=== PATIENT | male | born 1985 | race Caucasian/White ===

== ENCOUNTER 2019-07-03 21:45 | Emergency (ER) | payer MEDICAID, SELFPAY ==
[2019-07-03 21:53] VITALS: BP 150/85; PULSE 108; RESP 15; TEMP 36.9; O2SAT 98; BMI 25.6
--- NOTE | 2019-07-03 22:13 | ED_ITS ---
HPI - Dental/Oral General Chief complaint: Dental/Oral Stated complaint: HAD DENTAL DONE RIGHT SIDE OF FACE SWELLING Time Seen by Provider: 07/03/19 22:05 Source: patient Mode of arrival: Ambulatory Limitations: no limitations History of Present Illness HPI Narrative: 33-year-old male here for evaluation of right-sided facial swelling. Patient states that he has had a dental infection in the past on his right side. This was several weeks/months ago. Was started on antibiotics and was told to follow up with dental. After he completed the antibiotics the symptoms had improved however he has not followed up with dentist. He does have a follow-up tomorrow morning with a dentist. Returns today for swelling right side of his face. No problems breathing. Related Data Home Medications Medication Instructions Recorded Confirmed alprazolam PO Q12HP PRN #0 10/17/16 Previous Rx's Medication Instructions Recorded clindamycin HCl 300 mg PO QID 7 Days #28 cap 07/03/19 Allergies Allergy/AdvReac Type Severity Reaction Status Date / Time amoxicillin [AMOXICILLIN] Allergy Unknown Verified 07/03/19 21:53 Penicillins [PENICILLINS] Allergy Unknown Verified 07/03/19 21:53 Review of Systems Constitutional Constitutional: Denies fever(s) ENT Comments: Swelling to right side of face Cardiovascular Cardiovascular: Denies chest pain and Denies dyspnea Respiratory Respiratory: Denies dyspnea Gastrointestinal Gastrointestinal: Denies abdominal pain, Denies nausea and Reports vomiting Integumentary/Breasts Skin/Breast: Denies rash Neurologic Neurologic: Denies behavioral changes Psychiatric Psychiatric: Denies behavioral changes Hematologic/Lymphatic Hematologic/Lymphatic: Denies easy bleeding and Denies easy bruising [facility] Medical History Syncopal episodes (Inactive) Social History Smoking Status: Current every day smoker Social History Smoking Status: Current every day smoker Exam Initial Vital Signs Initial Vital Signs: Vital Signs Temperature 98.5 F 07/03/19 21:53 Pulse Rate 108 H 07/03/19 21:53 Respiratory Rate 15 07/03/19 21:53 Blood Pressure 150/85 H 07/03/19 21:53 Pulse Oximetry 98 07/03/19 21:53 Const General: cooperative, comfortable and well developed Orientation: alert, awake and oriented x3 HENMT Head: normal to inspection Ears: TM's normal bilaterally Mouth: oral mucosae normal Teeth and gingiva: caries and poor dentition Throat: posterior oropharynx normal Resp Effort & Inspection: normal respiratory effort Cardio Rate: tachycardic Pulses: radial pulses present GI Inspection: non-distended Palpation: soft Skin Lesions: no lesions Rashes: no rashes Neuro General: alert, awake and oriented x3 Cognition: normal cognition Speech: speech normal Psych Appearance: grossly normal and well kempt Course Orders Ordered: Discontinued Medications Clindamycin HCl (Cleocin) 300 mg PO NOW ONE Stop: 07/03/19 22:14 Last Admin: 07/03/19 22:24 Dose: 300 mg Documented by: XOCHITL Vital Signs Vital signs: Vital Signs - 8 hr 07/03/19 21:53 07/03/19 22:34 Temperature 98.5 F Pulse Rate 108 H 75 Respiratory Rate 15 Blood Pressure 150/85 H 141/72 H Pulse Oximetry 98 MDM - Dental/Oral MDM Narrative Medical decision making narrative: Patient does have a cracked right lower tooth. Does have swelling along the mandibular region of his right side of his face. There is no drainable abscess seen here in the emergency department. He has no problems breathing. He was given a dose of clindamycin here in the emergency department. Will send home with a prescription for this. His wound continued to keep his appointment with his dentist tomorrow. He was given return precautions and follow-up instructions. He expressed understanding and agreement with plan. Discharge Plan Departure Patient Disposition: Home Clinical Impression: Dental abscess Discharge Date/Time: 07/03/19 22:36 Instructions: Tooth Abscess Activity Restrictions/Additional Instructions: You can continue to take Tylenol and/or ibuprofen for any discomfort. Take the antibiotics as directed. Tomorrow you do need to contact the dentist like we discussed. Return to the emergency department for any new or worsening symptoms Prescriptions: New clindamycin HCl 300 mg capsule 300 mg PO QID 7 Days Qty: 28 RF: 0 No Action alprazolam 0.25 mg tablet PO Q12HP PRNQty: 0 RF: 0
[2019-07-03] MEDS: CLINDAMYCIN 150 MG CAPSULE 300 MG PO (22:24)
[2019-07-03 22:34] VITALS: BP 141/72; PULSE 75
== END 2019-07-03 22:36 | disposition home or self-care (01) ==
PROVIDERS: Emergency Provider Emergency Medicine
DX: K04.7 Periapical abscess without sinus (principal)
CPT/HCPCS: 99282; 99283

== ENCOUNTER 2019-12-17 13:18 | Emergency (ER) | payer OTHER, MEDICAID, SELFPAY ==
[2019-12-17 13:28] VITALS: BP 130/99; PULSE 93; RESP 16; TEMP 36.6; O2SAT 97; BMI 22.1
--- NOTE | 2019-12-17 13:37 | ED.MEDCLEAR ---
HPI - Medical Clearance <MARYA Campbell - Last Filed: 12/17/19 17:11> General Chief complaint: Medical Clearance Stated complaint: Screening before going into detox Time Seen by Provider: 12/17/19 13:25 Source: patient Mode of arrival: Ambulatory Limitations: no limitations History of Present Illness HPI Narrative: The patient is a 34-year-old current smoker with history of meth and heroin use who presents with a chief complaint of requesting medical clearance before going to detox. He states that he has been to [facility] detox before. He states that they have called him and they have a bed for him. However he needs to have lab work done first. He states he does not use IV drugs as he is afraid of needles. States he smoked heroin 58 minutes prior to arrival to the emergency department. He denies any thoughts of hurting himself or anybody else. He denies any physical complaints at this point time. Related Information Home Medications Medication Instructions Recorded Confirmed alprazolam PO Q12HP PRN #0 10/17/16 Allergies Allergy/AdvReac Type Severity Reaction Status Date / Time amoxicillin [AMOXICILLIN] Allergy Unknown Verified 07/03/19 21:53 Penicillins [PENICILLINS] Allergy Unknown Verified 07/03/19 21:53 Review of Systems <BLANCA Campbell - Last Filed: 12/17/19 17:11> Review of Systems Narrative: GENERAL: Denies chills, fatigue, malaise, fever, sweats. HEENT: Denies sinus pain, ear pain, sore throat, difficulty swallowing, dizziness. RESPIRATORY: Denies dyspnea, cough, wheezing, hemoptysis, sputum. CARDIOVASCULAR: Denies chest pain, palpitations, orthopnea, edema, GASTROINTESTINAL: Denies nausea, vomiting, abdominal pain, diarrhea, constipation, melena. : Denies dysuria, frequency, incontinence, hematuria, urinary retention. MUSCULOSKELETAL: denies weakness, joint pain, or bony pain SKIN: Denies rash, skin lesions, or other NEUROLOGIC: Denies weakness, headache, numbness, change in speech, confusion, seizures, incoordination. PSYCHIATRIC: See HPI 12 point review of systems is negative except for those stated above Patient History <MARYA Campbell - Last Filed: 12/17/19 17:11> Social History Smoking Status: Current every day smoker Smoking Status: Current every day smoker tobacco type: vaping alcohol intake frequency: other Substance Use Type: does not use Exam <MARYA Campbell - Last Filed: 12/17/19 17:11> Narrative Exam Narrative: GENERAL: This is a well-nourished, well-developed patient, no acute distress HEAD: Atraumatic. Normocephalic. No temporal or scalp tenderness. EYES: Pupils equal round and reactive. Extraocular motions intact. No scleral icterus. No injection or drainage. ENT: Nose without bleeding, purulent drainage or septal hematoma. Throat without erythema, tonsillar hypertrophy or exudate. Uvula midline. Airway patent. NECK: Trachea midline. No JVD or lymphadenopathy. Supple, nontender, no meningeal signs. CARDIOVASCULAR: Regular rate and rhythm RESPIRATORY: Clear to auscultation. Breath sounds equal bilaterally. No wheezes, rales, or rhonchi. No cough. No increased respiratory effort. No accessory muscle use GASTROINTESTINAL: Abdomen soft, non-tender, nondistended. No hepato-splenomegaly, or palpable masses. No guarding. EXTREMITIES: No clubbing, cyanosis, or edema. No joint tenderness, effusion, or edema noted. BACK: Nontender without deformity or crepitance. No flank tenderness. NEURO: AOx3. SKIN: No rash or erythema on visible skin Initial Vital Signs Initial Vital Signs: Vital Signs Temperature 97.9 F 12/17/19 13:28 Pulse Rate 93 H 12/17/19 13:28 Respiratory Rate 16 12/17/19 13:28 Blood Pressure 130/99 H 12/17/19 13:28 Pulse Oximetry 97 12/17/19 13:28 <Mika Evans DO - Last Filed: 12/17/19 17:37> Initial Vital Signs Initial Vital Signs: Vital Signs Temperature 97.9 F 12/17/19 13:28 Pulse Rate 93 H 12/17/19 13:28 Respiratory Rate 16 12/17/19 13:28 Blood Pressure 130/99 H 12/17/19 13:28 Pulse Oximetry 97 12/17/19 13:28 Scores <MARYA Campbell - Last Filed: 12/17/19 17:11> [facility] [place] coma scale eye opening: Spontaneous [place] coma scale verbal response: Orientated Daniel coma scale motor response: Obey commands [place] coma scale total score: 15 MDM - Medical Clearance <Lucia BLANCA Leslie - Last Filed: 12/17/19 17:11> Lab Data Result diagrams: 12/17/19 13:42 12/17/19 13:42 Labs: Lab Results 12/17/19 12/17/19 12/17/19 Range/Units 13:42 13:42 13:42 WBC 4.7 (4.5-11.0) X10^3/uL RBC 4.32 L (4.5-5.9) X10^6/uL Hgb 12.6 L (13.5-17.5) g/dL Hct 36.6 L (41-53) % MCV 84.7 (80-100) fL MCH 29.2 (26-34) PG MCHC 34.5 (30-36) % RDW 13.2 (11.6-14.8) % Plt Count 193 (150-400) X10^3/uL Neut % (Auto) 48.0 L (50-75) % Lymph % (Auto) 35.7 (25-40) % [place] % (Auto) 7.2 (3-14) % Eos % (Auto) 8.0 H (2-4) % Baso % (Auto) 1.1 (0-2) % Neut # (Auto) 2300 (0113-5785) /uL Lymph # (Auto) 1700 (4437-7795) /uL [place] # (Auto) 300 (0-900) /uL Eos # (Auto) 400 (0-450) /uL Baso # (Auto) 0 (0-100) /uL Sodium 137 (137-145) mmol/L Potassium 4.3 (3.4-5.1) mmol/L Chloride 101 (98-107) mmol/L Carbon Dioxide 28 (22-32) mmol/L BUN 18 (9-20) mg/dL Creatinine 0.73 (0.66-1.25) mg/dL Estimated GFR > 60.0 (>60) mL/min BUN/Creatinine Ratio 24.7 H (6-22) Glucose 99 (70-100) mg/dL Calcium 9.6 (8.4-10.2) mg/dL Total Bilirubin 1.1 (0.2-1.3) mg/dL AST 40 (17-59) IU/L ALT 18 (<50) IU/L Alkaline Phosphatase 55 (38-126) U/L Total Protein 7.3 (6.3-8.2) g/dL Albumin 4.4 (3.5-5.0) g/dL Globulin 2.9 (1.7-4.1) g/dL Albumin/Globulin Ratio 1.5 (1.0-2.8) TSH (0.47-4.68) uIU/mL Urine Color Urine Appearance Urine pH (4.5-8.0) Ur Specific [place] (1.000-1.035) Urine Protein (Negative) Urine Glucose (UA) (Negative) g/dL Urine Ketones (NEGATIVE) Urine Occult Blood (Negative) Urine Nitrate (Negative) Urine Bilirubin (NEGATIVE) Urine Urobilinogen (0.2) E.U./dL Ur Leukocyte Esterase (NEGATIVE) Urine RBC (0-5/HPF) Urine WBC (0-5/HPF) Amorphous Sediment Urine Bacteria (None) Ur Culture Indicated? Salicylates < 1.0 (<20) mg/dL U Opiates 300ng/mL cut (Negative) Ur Oxycodone Screen (Negative) Urine Methadone Screen (Negative) Acetaminophen < 10 L (10-30) ug/mL Ur Barbiturates Screen (Negative) U Tricyclic Antidepress (Negative) Ur Phencyclidine Scrn (Negative) Ur Amphetamines Screen (Negative) U Methamphetamines Scrn (Negative) Ur MDMA Scrn (Ecstasy) (Negative) U Benzodiazepines Scrn (Negative) Urine Cocaine Screen (Negative) U Marijuana (THC) Screen (Negative) Ethyl Alcohol < 10 ( - 10) mg/dL 12/17/19 12/17/19 12/17/19 Range/Units 13:42 14:11 14:11 WBC (4.5-11.0) X10^3/uL RBC (4.5-5.9) X10^6/uL Hgb (13.5-17.5) g/dL Hct (41-53) % MCV (80-100) fL MCH (26-34) PG MCHC (30-36) % RDW (11.6-14.8) % Plt Count (150-400) X10^3/uL Neut % (Auto) (50-75) % Lymph % (Auto) (25-40) % [place] % (Auto) (3-14) % Eos % (Auto) (2-4) % Baso % (Auto) (0-2) % Neut # (Auto) (7787-1481) /uL Lymph # (Auto) (3686-0962) /uL [place] # (Auto) (0-900) /uL Eos # (Auto) (0-450) /uL Baso # (Auto) (0-100) /uL Sodium (137-145) mmol/L Potassium (3.4-5.1) mmol/L Chloride (98-107) mmol/L Carbon Dioxide (22-32) mmol/L BUN (9-20) mg/dL Creatinine (0.66-1.25) mg/dL Estimated GFR (>60) mL/min BUN/Creatinine Ratio (6-22) Glucose (70-100) mg/dL Calcium (8.4-10.2) mg/dL Total Bilirubin (0.2-1.3) mg/dL AST (17-59) IU/L ALT (<50) IU/L Alkaline Phosphatase (38-126) U/L Total Protein (6.3-8.2) g/dL Albumin (3.5-5.0) g/dL Globulin (1.7-4.1) g/dL Albumin/Globulin Ratio (1.0-2.8) TSH 4.15 (0.47-4.68) uIU/mL Urine Color Yellow Urine Appearance Clear Urine pH 8.0 (4.5-8.0) Ur Specific [place] 1.020 (1.000-1.035) Urine Protein Negative (Negative) Urine Glucose (UA) Negative (Negative) g/dL Urine Ketones Negative (NEGATIVE) Urine Occult Blood Negative (Negative) Urine Nitrate Negative (Negative) Urine Bilirubin Negative (NEGATIVE) Urine Urobilinogen 0.2 (0.2) E.U./dL Ur Leukocyte Esterase Negative (NEGATIVE) Urine RBC None seen (0-5/HPF) Urine WBC None seen (0-5/HPF) Amorphous Sediment 1+ Urine Bacteria None seen (None) Ur Culture Indicated? Cult not indicated Salicylates (<20) mg/dL U Opiates 300ng/mL cut Positive H (Negative) Ur Oxycodone Screen Negative (Negative) Urine Methadone Screen Negative (Negative) Acetaminophen (10-30) ug/mL Ur Barbiturates Screen Negative (Negative) U Tricyclic Antidepress Negative (Negative) Ur Phencyclidine Scrn Negative (Negative) Ur Amphetamines Screen Negative (Negative) U Methamphetamines Scrn Positive H (Negative) Ur MDMA Scrn (Ecstasy) Negative (Negative) U Benzodiazepines Scrn Negative (Negative) Urine Cocaine Screen Negative (Negative) U Marijuana (THC) Screen Positive H (Negative) Ethyl Alcohol ( - 10) mg/dL ECG Data Attestation: I personally reviewed and interpreted this ECG as follows: Interpretation: Sinus rhythm. Ventricular rate 72. P.r. interval 120. QRS duration 102. viewed by Dr Cristina SCHWARZ Narrative Medical decision making narrative: The patient is a 34-year-old male who presents with a chief complaint of medical clearance for detox. I spoke with [facility], who states that the patient has a bed. Lab results were faxed over and they accepted him as a patient. Patient states he will walk home in order for his to drive him. I discussed at length that since he is intoxicated, he is unable to drive. He is okay with this. Patient radiates that he has no thoughts of hurting himself or anybody else. Patient has no questions or concerns upon discharge and states understanding return precautions as well as follow-up care. <Mika Evans, DO - Last Filed: 12/17/19 17:37> Lab Data Labs: Lab Results 12/17/19 12/17/19 12/17/19 Range/Units 13:42 13:42 13:42 WBC 4.7 (4.5-11.0) X10^3/uL RBC 4.32 L (4.5-5.9) X10^6/uL Hgb 12.6 L (13.5-17.5) g/dL Hct 36.6 L (41-53) % MCV 84.7 (80-100) fL MCH 29.2 (26-34) PG MCHC 34.5 (30-36) % RDW 13.2 (11.6-14.8) % Plt Count 193 (150-400) X10^3/uL Neut % (Auto) 48.0 L (50-75) % Lymph % (Auto) 35.7 (25-40) % [place] % (Auto) 7.2 (3-14) % Eos % (Auto) 8.0 H (2-4) % Baso % (Auto) 1.1 (0-2) % Neut # (Auto) 2300 (3191-3889) /uL Lymph # (Auto) 1700 (2682-2136) /uL [place] # (Auto) 300 (0-900) /uL Eos # (Auto) 400 (0-450) /uL Baso # (Auto) 0 (0-100) /uL Sodium 137 (137-145) mmol/L Potassium 4.3 (3.4-5.1) mmol/L Chloride 101 (98-107) mmol/L Carbon Dioxide 28 (22-32) mmol/L BUN 18 (9-20) mg/dL Creatinine 0.73 (0.66-1.25) mg/dL Estimated GFR > 60.0 (>60) mL/min BUN/Creatinine Ratio 24.7 H (6-22) Glucose 99 (70-100) mg/dL Calcium 9.6 (8.4-10.2) mg/dL Total Bilirubin 1.1 (0.2-1.3) mg/dL AST 40 (17-59) IU/L ALT 18 (<50) IU/L Alkaline Phosphatase 55 (38-126) U/L Total Protein 7.3 (6.3-8.2) g/dL Albumin 4.4 (3.5-5.0) g/dL Globulin 2.9 (1.7-4.1) g/dL Albumin/Globulin Ratio 1.5 (1.0-2.8) TSH (0.47-4.68) uIU/mL Urine Color Urine Appearance Urine pH (4.5-8.0) Ur Specific [place] (1.000-1.035) Urine Protein (Negative) Urine Glucose (UA) (Negative) g/dL Urine Ketones (NEGATIVE) Urine Occult Blood (Negative) Urine Nitrate (Negative) Urine Bilirubin (NEGATIVE) Urine Urobilinogen (0.2) E.U./dL Ur Leukocyte Esterase (NEGATIVE) Urine RBC (0-5/HPF) Urine WBC (0-5/HPF) Amorphous Sediment Urine Bacteria (None) Ur Culture Indicated? Salicylates < 1.0 (<20) mg/dL U Opiates 300ng/mL cut (Negative) Ur Oxycodone Screen (Negative) Urine Methadone Screen (Negative) Acetaminophen < 10 L (10-30) ug/mL Ur Barbiturates Screen (Negative) U Tricyclic Antidepress (Negative) Ur Phencyclidine Scrn (Negative) Ur Amphetamines Screen (Negative) U Methamphetamines Scrn (Negative) Ur MDMA Scrn (Ecstasy) (Negative) U Benzodiazepines Scrn (Negative) Urine Cocaine Screen (Negative) U Marijuana (THC) Screen (Negative) Ethyl Alcohol < 10 ( - 10) mg/dL 12/17/19 12/17/19 12/17/19 Range/Units 13:42 14:11 14:11 WBC (4.5-11.0) X10^3/uL RBC (4.5-5.9) X10^6/uL Hgb (13.5-17.5) g/dL Hct (41-53) % MCV (80-100) fL MCH (26-34) PG MCHC (30-36) % RDW (11.6-14.8) % Plt Count (150-400) X10^3/uL Neut % (Auto) (50-75) % Lymph % (Auto) (25-40) % [place] % (Auto) (3-14) % Eos % (Auto) (2-4) % Baso % (Auto) (0-2) % Neut # (Auto) (4358-7808) /uL Lymph # (Auto) (0362-9832) /uL [place] # (Auto) (0-900) /uL Eos # (Auto) (0-450) /uL Baso # (Auto) (0-100) /uL Sodium (137-145) mmol/L Potassium (3.4-5.1) mmol/L Chloride (98-107) mmol/L Carbon Dioxide (22-32) mmol/L BUN (9-20) mg/dL Creatinine (0.66-1.25) mg/dL Estimated GFR (>60) mL/min BUN/Creatinine Ratio (6-22) Glucose (70-100) mg/dL Calcium (8.4-10.2) mg/dL Total Bilirubin (0.2-1.3) mg/dL AST (17-59) IU/L ALT (<50) IU/L Alkaline Phosphatase (38-126) U/L Total Protein (6.3-8.2) g/dL Albumin (3.5-5.0) g/dL Globulin (1.7-4.1) g/dL Albumin/Globulin Ratio (1.0-2.8) TSH 4.15 (0.47-4.68) uIU/mL Urine Color Yellow Urine Appearance Clear Urine pH 8.0 (4.5-8.0) Ur Specific [place] 1.020 (1.000-1.035) Urine Protein Negative (Negative) Urine Glucose (UA) Negative (Negative) g/dL Urine Ketones Negative (NEGATIVE) Urine Occult Blood Negative (Negative) Urine Nitrate Negative (Negative) Urine Bilirubin Negative (NEGATIVE) Urine Urobilinogen 0.2 (0.2) E.U./dL Ur Leukocyte Esterase Negative (NEGATIVE) Urine RBC None seen (0-5/HPF) Urine WBC None seen (0-5/HPF) Amorphous Sediment 1+ Urine Bacteria None seen (None) Ur Culture Indicated? Cult not indicated Salicylates (<20) mg/dL U Opiates 300ng/mL cut Positive H (Negative) Ur Oxycodone Screen Negative (Negative) Urine Methadone Screen Negative (Negative) Acetaminophen (10-30) ug/mL Ur Barbiturates Screen Negative (Negative) U Tricyclic Antidepress Negative (Negative) Ur Phencyclidine Scrn Negative (Negative) Ur Amphetamines Screen Negative (Negative) U Methamphetamines Scrn Positive H (Negative) Ur MDMA Scrn (Ecstasy) Negative (Negative) U Benzodiazepines Scrn Negative (Negative) Urine Cocaine Screen Negative (Negative) U Marijuana (THC) Screen Positive H (Negative) Ethyl Alcohol ( - 10) mg/dL Discharge Plan Departure Patient Disposition: Home Clinical Impression: Drug abuse Discharge Date/Time: 12/17/19 16:10 Instructions: DI for Drug Abuse and Drug Addiction, DI for Drug or Alcohol Withdrawal Activity Restrictions/Additional Instructions: Thank you for trusting us with your care today. I am proud of you for getting help. You have succeeded in getting clean before and you can do it again. Please proceed directly to [facility]. 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 Please do not drive. Prescriptions: No Action alprazolam 0.25 mg tablet PO Q12HP PRNQty: 0 RF: 0 ED Sign-out <MARYA Campbell - Last Filed: 12/17/19 17:11> [facility] ED Attending Tami Attestation: I was immediately available in the department for consultation. This documentation has been reviewed and I agree with assessment and plan. Supervised by MARYA Campbell <Mika Evans DO - Last Filed: 12/17/19 17:37> [facility] ED Attending Tami Attestation: Dr Evans Co-Sign Statement: I was available for consultation during this patient's emergency department visit. This chart is signed by myself for administrative purposes only. I did not have direct contact with this patient during this visit. They were seen independently by the APC.
[2019-12-17 13:50] LABS: Add Manual Diff / Slide Review NO; Basophils Absolute Auto 0 /uL (0-100); Basophils Percent Auto 1.1 % (0-2); Eosinophils Absolute Auto 400 /uL (0-450); Hematocrit 36.6 % (41-53); Hemoglobin 12.6 g/dL (13.5-17.5); Lymphocytes Absolute Auto 1700 /uL (1100-4500); Lymphocytes Percent Auto 35.7 % (25-40); Mean Corpuscular HGB Conc 34.5 % (30-36); Mean Corpuscular Hemoglobin 29.2 PG (26-34); Mean Corpuscular Volume 84.7 fL (80-100); Monocytes Absolute Auto 300 /uL (0-900); Monocytes Percent Auto 7.2 % (3-14); Neutrophils Absolute Auto 2300 /uL (1500-7000); Platelet Count 193 X10^3/uL (150-400); Red Blood Cell Count 4.32 X10^6/uL (4.5-5.9); Red Cell Distribution Width 13.2 % (11.6-14.8); White Blood Cell Count 4.7 X10^3/uL (4.5-11.0)
[2019-12-17 14:06] LABS: Alanine Aminotransferase 18 IU/L (<50); Albumin 4.4 g/dL (3.5-5.0); Albumin Globulin Ratio 1.5 (1.0-2.8); Alkaline Phosphatase 55 U/L (38-126); Aspartate Aminotransferase 40 IU/L (17-59); BUN Creatinine Ratio 24.7 (6-22); Bilirubin Total 1.1 mg/dL (0.2-1.3); Blood Urea Nitrogen 18 mg/dL (9-20); Calcium 9.6 mg/dL (8.4-10.2); Carbon Dioxide 28 mmol/L (22-32); Chloride 101 mmol/L (98-107); Estimated Glomerular Filt Rate > 60.0 mL/min (>60); Ethanol (ETOH) < 10 mg/dL; Globulin 2.9 g/dL (1.7-4.1); Glucose 99 mg/dL (70-100); HEMOLYSIS < 15 (0-50); Potassium 4.3 mmol/L (3.4-5.1); Sodium 137 mmol/L (137-145); Total Protein 7.3 g/dL (6.3-8.2)
[2019-12-17 14:07] LABS: Acetaminophen < 10 ug/mL (10-30); Salicylate < 1.0 mg/dL (<20)
[2019-12-17 15:02] LABS: Bacteria Urine None Seen; RBC Urine None Seen (0-5/HPF); WBC Urine None Seen (0-5/HPF)
[2019-12-17 15:03] LABS: Appearance Urine UA CLEAR; Bilirubin Urine UA NEGATIVE (NEGATIVE); Color Urine UA YELLOW; Glucose Urine UA NEGATIVE (Negative); Ketones Urine UA NEGATIVE (NEGATIVE); Leukocyte Esterase Urine UA NEGATIVE (NEGATIVE); Nitrite Urine UA NEGATIVE (Negative); Occult Blood Urine UA NEGATIVE (Negative); Protein Urine UA NEGATIVE (Negative); Urobilinogen Urine UA 0.2 E.U./dL (0.2)
[2019-12-17 15:05] LABS: Thyroid Stimulating Hormone 4.15 uIU/mL (0.47-4.68)
[2019-12-17 15:15] LABS: Amorphous Sediment Urine 1+; Culture Indicated Urine Cult Not Indicated
[2019-12-17 15:18] LABS: Ur Creatinine Normal (Normal); Ur Specific Gravity Normal (Normal)
[2019-12-17 15:19] LABS: UR Morphine/Opiate cutoff 300 Positive (Negative); Urine Amphetamines Negative (Negative); Urine Barbiturates Negative (Negative); Urine Benzodiazepines Negative (Negative); Urine Cocaine Negative (Negative); Urine MDMA Negative (Negative); Urine Methadone Negative (Negative); Urine Methamphetamines Positive (Negative); Urine Oxycodone Negative (Negative); Urine Phencyclidine Negative (Negative); Urine Tetrahydrocannabinol Positive (Negative); Urine Tricyclic Antidepressant Negative (Negative); Urine pH Normal (Normal)
--- NOTE | 2019-12-17 15:50 | PC.NURSE ---
pt states his is going to give him a ride to detox. pt voluntary. Per provider, okay with patient to leave to home and have take him.
[2019-12-17 15:55] VITALS: BP 140/81; PULSE 77; RESP 18; O2SAT 100
== END 2019-12-17 16:10 | disposition home or self-care (01) ==
PROVIDERS: Emergency Provider Nurse Practitioner Family
DX: F11.10 Opioid abuse, uncomplicated (principal)
CPT/HCPCS: 36415; 80053; 80305; 80320; 80329; 81001; 84443; 85025; 93005; 99282; 99283; G0480

== ENCOUNTER 2020-09-23 07:44 | Emergency (ER) | payer OTHER, MEDICAID, SELFPAY ==
[2020-09-23 07:49] VITALS: BP 167/85; PULSE 76; RESP 18; TEMP 36.9; O2SAT 100; BMI 26.9
--- NOTE | 2020-09-23 07:53 | ED.DENTAL ---
HPI - Dental/Oral General Chief complaint: Dental/Oral Stated complaint: abcess tooth Time Seen by Provider: 09/23/20 07:45 Source: patient Mode of arrival: Ambulatory Limitations: no limitations History of Present Illness HPI Narrative: 34-year-old male smoker with chief complaint of dental pain and mild facial swelling. He denies any trauma nor systemic symptoms such as fever, chills nor nausea or vomiting. He denies a drainage of any foul tasting fluid. He has been having increasing difficulty with the right upper molar for the past month or so but has really flared up over the past few days. He denies any recent antibiotics. He denies runny nose, sore throat or cough. He has had no chest pain or shortness of breath. MD Complaint: tooth pain Location: Tooth # Teeth map: 1. Onset (ago): day(s) Duration: constant Severity: severe Relieving factors: nothing Exacerbating factors: chewing, cold, heat and drinking fluids Context: history of dental caries Treatment prior to arrival: oral analgesic Related Data Home Medications Medication Instructions Recorded Confirmed alprazolam PO Q12HP PRN #0 10/17/16 Previous Rx's Medication Instructions Recorded clindamycin HCl 300 mg PO Q8H 10 Days #30 cap 09/23/20 ketorolac 10 mg PO Q6H PRN #14 tab 09/23/20 Allergies Allergy/AdvReac Type Severity Reaction Status Date / Time amoxicillin [AMOXICILLIN] Allergy Unknown Verified 09/23/20 07:49 Penicillins [PENICILLINS] Allergy Unknown Verified 09/23/20 07:49 Review of Systems Constitutional Constitutional: Denies chills, Denies fatigue, Denies fever(s), Denies frequent falls, Denies lethargy and Denies weakness Eyes Eyes: Denies change in vision, Denies eye discharge, Denies irritation and Denies loss of vision ENT Ears, Nose, Mouth, and Throat: Denies change in voice, Reports dental pain, Denies dizziness, Denies neck pain, Denies sore throat and Denies throat swelling Cardiovascular Cardiovascular: Denies chest pain, Denies irregular heart rhythm, Denies lightheadedness, Denies palpitations, Denies dyspnea, Denies dyspnea on exertion and Denies orthopnea Respiratory Respiratory: Denies cough, Denies dyspnea, Denies dyspnea on exertion and Denies wheezing Gastrointestinal Gastrointestinal: Denies abdominal pain, Denies change in bowel habits, Denies diarrhea, Denies nausea and Denies vomiting Musculoskeletal Musculoskeletal: Denies neck pain and Denies numbness Integumentary/Breasts Skin/Breast: Denies pruritus, Denies erythema, Denies rash and Denies wounds Neurologic Neurologic: Denies behavioral changes, Denies confusion, Denies dizziness, Denies frequent falls, Denies loss of vision, Denies numbness and Denies weakness Psychiatric Psychiatric: Denies anxiety, Denies behavioral changes, Denies confusion, Denies depression, Denies homicidal ideation and Denies suicidal ideation Endocrine Endocrine: Denies fatigue, Denies flushing and Denies palpitations Hematologic/Lymphatic Hematologic/Lymphatic: Denies easy bruising Allergic/Immunologic Allergic/Immunologic: Denies urticaria, Denies throat swelling and Denies wheezing Patient History Medical History (Updated 09/23/20 @ 07:56 by Rhett Chappell DO) Syncopal episodes Social History Smoking Status: Current every day smoker Smoking Status: Current every day smoker tobacco type: vaping alcohol intake frequency: other Substance Use Type: former substance user Exam Narrative Exam Narrative: GEN: AOx3 and in mild distress EYES: Pupils are equal, round, and reactive to light and accommodation. Extraoccular muscles are intact bilaterally. There is no subconjunctival hemorrhage or exudate. FACIAL: Mild right upper facial swelling. No redness or induration. Intraoral exam notes [place] caries, no no obvious swelling, fluctuance CHEST: Lungs are clear to auscultation bilaterally and free of wheezes, rales, or rhonchi. Heart rate is regular rhythm, there are no murmurs, clicks, rubs, or gallops. There is no chest wall tenderness. ABD: Abdomen is soft and nontender. There is no guarding or rebound. Bowel sounds are normal in all 4 quadrants. There is no mass or organomegaly. EXT: Full painless ROM of all extremities with no loss of sensation or strength. SKIN: Warm, pink, and dry. No erythema or rash Initial Vital Signs Initial Vital Signs: Vital Signs Temperature 98.4 F 09/23/20 07:49 Pulse Rate 76 09/23/20 07:49 Respiratory Rate 18 09/23/20 07:49 Blood Pressure 167/85 H 09/23/20 07:49 Pulse Oximetry 100 09/23/20 07:49 Procedures Nerve Block Nerve Block 1: Time out performed: Yes Local Anesthetic: bupivacaine 0.25% and with epi Amount of anesthesia used (mL): 4 Side: right Intraoral Nerve Block: superior alveolar Procedure Successful: Yes Patient Tolerated Procedure: Well Complications: none Course Orders Ordered: Discontinued Medications Bupivacaine HCl/Epinephrine Bitart (Bupivacaine 0.5% W/ Epi (Pf) 30 Ml Vial) 5 ml SUBCUT NOW ONE Stop: 09/23/20 07:53 Last Admin: 09/23/20 08:10 Dose: 5 ml Documented by: GERMAN Clindamycin HCl (Clindamycin 150 Mg Capsule) 300 mg PO NOW ONE Stop: 09/23/20 07:53 Last Admin: 09/23/20 08:08 Dose: 300 mg Documented by: GERMAN Vital Signs Vital signs: Vital Signs - 8 hr 09/23/20 07:49 Temperature 98.4 F Pulse Rate 76 Respiratory Rate 18 Blood Pressure 167/85 H Pulse Oximetry 100 Discharge Plan Departure Patient Disposition: Home Clinical Impression: Dental caries, Dental abscess Instructions: Tooth Abscess, DI for Dental Pain Activity Restrictions/Additional Instructions: *You have been diagnosed with [dental caries, possible early abscess] *What to do: *Take medications as directed *Follow up with your primary care provider in 2-3 days, call for an appointment. Let them know you were seen in the Emergency Department and that we ask that you be seen in follow up *Return to ER if you should have any new, worsening or concerning symptoms Prescriptions: New clindamycin HCl 300 mg capsule 300 mg PO Q8H 10 Days Qty: 30 RF: 0 ketorolac 10 mg tablet 10 mg PO Q6H PRN (Reason: pain) Qty: 14 RF: 0 No Action alprazolam 0.25 mg tablet PO Q12HP PRNQty: 0 RF: 0
[2020-09-23] MEDS: CLINDAMYCIN 150 MG CAPSULE 300 MG PO (08:08)
[2020-09-23] MEDS: BUPIVACAINE 0.5% W/ EPI (PF) 30 ML VIAL 5 ML SUBCUT (08:10)
== END 2020-09-23 08:18 | disposition home or self-care (01) ==
LOC: ED 08:11
PROVIDERS: Emergency Provider Emergency Medicine
DX: K04.7 Periapical abscess without sinus (principal); K02.9 Dental caries, unspecified
CPT/HCPCS: 64450; 99281; 99283

== ENCOUNTER 2020-10-04 07:54 | Emergency (ER) | payer OTHER, MEDICAID, SELFPAY ==
[2020-10-04 08:10] VITALS: BP 139/65; PULSE 69; RESP 14; TEMP 36.8; O2SAT 98; BMI 26.9
--- NOTE | 2020-10-04 08:50 | ED_ITS ---
HPI - Dental/Oral General Chief complaint: Dental/Oral Stated complaint: abcess tooth Time Seen by Provider: 10/04/20 08:35 Source: patient Mode of arrival: Ambulatory Limitations: no limitations History of Present Illness HPI Narrative: This is a 34-year-old male comes in with complaint of abscess tooth. Patient was here on the . He states he has had issues multiple times in the past. He was given ketorolac and clindamycin. He states he has received clindamycin multiple times and is concerned about resistance as he has had no improvement on this episode. He has had continued pain and swelling but no increasing redness, facial swelling, airway swelling, tongue involvement. He has not had fevers but has felt unwell. No nausea or vomiting. States the pain is radiating to his cheek toward his ear and to his head. He does take Suboxone regularly for addiction. He denies other medical issues. He has a history of allergy to amoxicillin and penicillin he states he may have broken out in a rash but did not have any anaphylactic symptoms that he is aware of. He states he was a small child when this occurred. Location: Tooth # (1) Related Data Home Medications Medication Instructions Recorded Confirmed alprazolam PO Q12HP PRN #0 10/17/16 Previous Rx's Medication Instructions Recorded ketorolac 10 mg PO Q6H PRN #14 tab 09/23/20 amoxicillin 500 mg PO TID #30 cap 10/04/20 Allergies Allergy/AdvReac Type Severity Reaction Status Date / Time amoxicillin [AMOXICILLIN] Allergy Unknown Rash Verified 10/04/20 09:06 Penicillins [PENICILLINS] Allergy Unknown Verified 10/04/20 08:16 Review of Systems Review of Systems ROS Unobtainable: All systems reviewed & are unremarkable except as noted in HPI and below Patient History Medical History (Updated 10/04/20 @ 09:09 by Lucia Li DO) Syncopal episodes Social History Smoking Status: Current every day smoker Smoking Status: Current every day smoker tobacco type: vaping alcohol intake frequency: other Substance Use Type: former substance user Exam Narrative Exam Narrative: GEN: well nourished, well appearing male, alert and oriented x 3, patient appears to be in mild distress. HEENT: Atraumatic, pupils are equal round reactive to light, extraocular movements are intact, nares are clear, TMs are clear with no fluid, there is no conjunctival pallor. Throat is clear without any exudates, erythema, tonsillar enlargement or uvular deviation, patient has some swelling and redness but no fluctuance around tooth 1. Patient is mildly tender to touch. There is no facial erythema, swelling or induration. No obvious abscess or fluid collection. Patient is afebrile. He does have what appears to be a cavity that has had a feeling at that tooth. HEART: Regular rate and rhythm without murmur, clicks, rubs. LUNGS:Lungs clear to auscultation, no wheezes, rales, crackles, chest moves symmetrically ABD:bowel sounds normal, soft, non-tender, no guarding, rebound, rigidity, no masses noted, no hepatosplenomegaly MSCL: Non-tender, no muscle atrophy, muscles strength 5/5 upper and lower extremities, full range of motion, normal gait NEURO:CN 2-12 intact, sensation normal Initial Vital Signs Initial Vital Signs: Vital Signs Temperature 98.2 F 10/04/20 08:10 Pulse Rate 69 10/04/20 08:10 Respiratory Rate 14 10/04/20 08:10 Blood Pressure 139/65 10/04/20 08:10 Pulse Oximetry 98 10/04/20 08:10 Course Orders Ordered: Discontinued Medications Amoxicillin (Amoxicillin 250 Mg Capsule) 500 mg PO NOW ONE Stop: 10/04/20 09:04 Last Admin: 10/04/20 09:17 Dose: 500 mg Documented by: SABI Vital Signs Vital signs: Vital Signs - 8 hr 10/04/20 08:10 Temperature 98.2 F Pulse Rate 69 Respiratory Rate 14 Blood Pressure 139/65 Pulse Oximetry 98 MDM - Dental/Oral MDM Narrative Medical decision making narrative: Patient received clindamycin. He has had a history of penicillin amoxicillin allergy as a child. He states that he believes it was potentially a rash but is unsure if it occurred with both medications. He did not have anaphylactic symptoms cording to the patient. As he seems to not be improving with clindamycin plan to give him a dose here of amoxicillin in the department and observe. If patient tolerates will DC home with amoxicillin prescription. Discharge Plan Departure Patient Disposition: Home Clinical Impression: Abscess, dental Instructions: Tooth Abscess Activity Restrictions/Additional Instructions: Follow-up with a dentist at your earliest convenience. [facility] has a dental clinic that is available. Take antibiotics until they are completely gone. You have been prescribed amoxicillin and there is potential for allergic reaction. If you have any symptoms take 2 tablets of Benadryl or 50 mg of Benadryl and return to the ER for evaluation. Return for fevers, increasing redness, swelling, difficulty with swallowing, ho arseness, swelling of the lips mouth oropharynx, rash, persistent vomiting or other new or concerning symptoms. Prescriptions: New amoxicillin 500 mg capsule 500 mg PO TID Qty: 30 RF: 0 No Action alprazolam 0.25 mg tablet PO Q12HP PRNQty: 0 RF: 0 ketorolac 10 mg tablet 10 mg PO Q6H PRN (Reason: pain) Qty: 14 RF: 0
[2020-10-04] MEDS: AMOXICILLIN 250 MG CAPSULE 500 MG PO (09:17)
[2020-10-04 10:10] VITALS: BP 121/63; PULSE 66; RESP 16; O2SAT 99
== END 2020-10-04 10:12 | disposition home or self-care (01) ==
PROVIDERS: Emergency Provider Emergency Medicine
DX: K04.7 Periapical abscess without sinus (principal); Z88.1 Allergy status to other antibiotic agents
CPT/HCPCS: 99281; 99283

== ENCOUNTER 2021-04-13 17:09 | Emergency (ER) | payer BC, SELFPAY ==
[2021-04-13 17:20] VITALS: BP 127/74; PULSE 54; RESP 16; TEMP 36.7; O2SAT 100; BMI 25.7
[2021-04-13 17:51] LABS: COVID19 -Nasal RAPID Negative (Negative)
--- NOTE | 2021-04-13 19:23 | ED.FEVER ---
HPI - Fever <Rivka Dutta PA-C - Last Filed: 04/13/21 20:31> General Chief Complaint: Fever Stated Complaint: needs covid test Time Seen by Provider: 04/13/21 17:35 Source: patient Mode of arrival: Ambulatory Limitations: no limitations History of Present Illness HPI Narrative: 35-year-old male PMH knee surgery who presents to the ER complaining of 4 day history cough, body aches, chills, nausea, vomiting, and fatigue. Four days ago, began with low-grade fever which has since improved in overall thought he was improving however today concern for persisting nausea, fatigue, and 3 episodes of nonbilious nonbloody vomiting. 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 Denies abdominal pain, chest pain, shortness of breath, muscle cramping, diarrhea, lightheadedness, or syncope. Related Data Home Medications Medication Instructions Recorded Confirmed alprazolam 0.25 mg tablet PO Q12HP PRN #0 10/17/16 Previous Rx's Medication Instructions Recorded ketorolac 10 mg tablet 10 mg PO Q6H PRN #14 tab 09/23/20 amoxicillin 500 mg capsule 500 mg PO TID #30 cap 10/04/20 ondansetron 4 mg disintegrating 4 mg PO Q6-8H PRN #14 tab 04/13/21 tablet Allergies Allergy/AdvReac Type Severity Reaction Status Date / Time No Known Drug Allergies Allergy Verified 04/13/21 17:24 Review of Systems <Rivka Dutta PA-C - Last Filed: 04/13/21 20:31> Review of Systems Narrative: General: reports fever, denies chills Head/Neck: denies headache, neck pain Eyes: denies visual changes, eye pain Cardio: denies chest pain, palpitations Respiratory: reports cough. denies shortness of breath GI: reports vomiting, nausea. denies abdominal pain, diarrhea : denies dysuria, hematuria MSK: denies joint pain, muscle weakness, muscle spasm Skin: denies rash, itching Neuro: denies LOC, numbness, tingling, loss of sensory/motor function Patient History <Rivka Dutta PA-C - Last Filed: 04/13/21 20:31> Medical History Syncopal episodes Social History Smoking Status: Current some day smoker Smoking Status: Current some day smoker tobacco type: vaping alcohol intake frequency: other Substance Use Type: former substance user Exam <Rivka Dutta PA-C - Last Filed: 04/13/21 20:31> Narrative Exam Narrative: Independently reviewed vitals signs and nursing notes. General: Awake, alert, nontoxic, no cardiorespiratory distress Head/Neck: Atraumatic, neck full range of motion Eyes: EOMI, conjunctiva normal Nose: nares patent, no rhinorrhea Mouth/Throat: moist mucus membranes, posterior pharynx normal, no oral lesions Cardio: Regular rate and rhythm, no peripheral edema Respiratory: CTAB unlabored without wheezing, stridor, or rales. No retractions. GI: Abdomen soft, nontender MSK: Moves all extremities, neurovascularly intact Skin: Normal capillary refill, no rash Neuro: Normal speech and cognition, normal gait Initial Vital Signs Initial Vital Signs: Vital Signs Temperature 98.1 F 04/13/21 17:20 Pulse Rate 54 L 04/13/21 17:20 Respiratory Rate 16 04/13/21 17:20 Blood Pressure 127/74 04/13/21 17:20 Pulse Oximetry 100 04/13/21 17:20 <Mika Evans DO - Last Filed: 04/14/21 07:46> Initial Vital Signs Initial Vital Signs: Vital Signs Temperature 98.1 F 04/13/21 17:20 Pulse Rate 54 L 04/13/21 17:20 Respiratory Rate 16 04/13/21 17:20 Blood Pressure 127/74 04/13/21 17:20 Pulse Oximetry 100 04/13/21 17:20 Course <Rivka Dutta PA-C - Last Filed: 04/13/21 20:31> Orders Ordered: ED Orders 04/13/21 17:20 COVID19 -Nasal swab/Pre-Proc Stat Vital Signs Vital signs: Vital Signs - 8 hr 04/13/21 17:20 Temperature 98.1 F Pulse Rate 54 L Respiratory Rate 16 Blood Pressure 127/74 Pulse Oximetry 100 <DO Karthikeyan Do Last Filed: 04/14/21 07:46> Orders Ordered: ED Orders 04/13/21 17:20 COVID19 -Nasal swab/Pre-Proc Stat Vital Signs Vital signs: Vital Signs - 8 hr 04/13/21 17:20 Temperature 98.1 F Pulse Rate 54 L Respiratory Rate 16 Blood Pressure 127/74 Pulse Oximetry 100 MDM - Fever <Rivka Dutta PA-C - Last Filed: 04/13/21 20:31> Lab Data Labs: Lab Results 04/13/21 Range/Units 17:20 SARS-CoV-2 (PCR) Negative (Negative) MDM Narrative Medical decision making narrative: 35-year-old male PMH knee surgery who presents to the ER complaining of 4 day history cough, body aches, chills, nausea, vomiting, and fatigue. Initial ddx to include without evidence of dehydration, pancreatitis, intra-abdominal pathology, rhabdomyolysis, URI, pneumonia, or additional pathology. Vitals WNL, exam unremarkable. ED workup to include COVID testing negative. Patient is appropriate and amenable to discharge home. Vital signs are stable on repeat examination is unremarkable. He has been prescribed Zofran to use as needed for nausea/vomiting. Patient has been informed of results. Patient has been given strict return to ER precautions for any new or worsening symptoms. Patient understands to follow up closely with outpatient providers as instructed. Patient understands plan and agrees to discharge home. All questions and concerns answered at this time. <Mika Evans DO - Last Filed: 04/14/21 07:46> Lab Data Labs: Lab Results 04/13/21 Range/Units 17:20 SARS-CoV-2 (PCR) Negative (Negative) Discharge Plan Departure Patient Disposition: Home Clinical Impression: Viral syndrome Vomiting Qualifiers: Vomiting type: unspecified Vomiting Intractability: non-intractable Nausea presence: with nausea Qualified Code(s): R11.2 - Nausea with vomiting, unspecified Instructions: DI for Viral Syndrome, DI for Vomiting -- Adult Activity Restrictions/Additional Instructions: *You have been diagnosed with [viral syndrome, vomiting] *What to do: [X] New medication prescriptions sent to your pharmacy: [[facility]] [ ] New medication written as a paper prescription [ ] No new medications given * Please follow-up with your primary care provider in 2-3 days, call for an appointment. Let them know you were seen in the emergency department and that we ask you to be seen in follow-up. * if you do not have a primary care provider, please contact the [facility] Resource line at [phone]. They will ask some questions about your medical history and help to get up with a doctor in the community. * Return to the if you should have any new, worsening, or concerning symptoms. Prescriptions: New ondansetron 4 mg tablet,disintegrating 4 mg PO Q6-8H PRN (Reason: nausea and vomiting) Qty: 14 RF: 0 No Action alprazolam 0.25 mg tablet PO Q12HP PRNQty: 0 RF: 0 ketorolac 10 mg tablet 10 mg PO Q6H PRN (Reason: pain) Qty: 14 RF: 0 amoxicillin 500 mg capsule 500 mg PO TID Qty: 30 RF: 0 Stand Alone Forms: Work Release Note <Mika Evans, DO - Last Filed: 04/14/21 07:46> Cosign ED Attending Cosignature Attestation: Dr Evans Co-Sign Statement: I was available for consultation during this patient's emergency department visit. This chart is signed by myself for administrative purposes only. I did not have direct contact with this patient during this visit. They were seen independently by the APC.
== END 2021-04-13 18:49 | disposition home or self-care (01) ==
PROVIDERS: Emergency Medicine; Emergency Provider Physician Assistant
DX: B34.9 Viral infection, unspecified (principal); R11.2 Nausea with vomiting, unspecified; Z20.822 Contact with and (suspected) exposure to COVID-19
CPT/HCPCS: 87635; 99281; 99282; C9803

== ENCOUNTER 2021-06-05 12:15 | Emergency (ER) | payer BC, SELFPAY ==
[2021-06-05 12:29] VITALS: BP 137/87; PULSE 72; RESP 12; TEMP 37.9; O2SAT 100
[2021-06-05 12:54] LABS: COVID19 -Nasal RAPID Negative (Negative)
--- NOTE | 2021-06-05 17:57 | ED.URI ---
HPI - URI/Sore Throat <HUGO Trinidad - Last Filed: 06/05/21 18:03> General Chief Complaint: Upper Respiratory Symptoms Stated Complaint: Fatigue, body aches, slight cough Time Seen by Provider: 06/05/21 15:55 Source: patient Mode of arrival: Ambulatory Limitations: no limitations History of Present Illness HPI Narrative: Mr. Hawkins presents to the ED for concern for COVID after possible exposure. He is unable to return to work unless he has a COVID test. He reports that he has had some congestion lately but denies body aches, fever, cough, or fatigue. He denies nausea, vomiting, or diarrhea. He has not lost his smell or taste. Related Data Home Medications Medication Instructions Recorded Confirmed alprazolam 0.25 mg tablet PO Q12HP PRN #0 10/17/16 Previous Rx's Medication Instructions Recorded ketorolac 10 mg tablet 10 mg PO Q6H PRN #14 tab 09/23/20 amoxicillin 500 mg capsule 500 mg PO TID #30 cap 10/04/20 ondansetron 4 mg disintegrating 4 mg PO Q6-8H PRN #14 tab 04/13/21 tablet Allergies Allergy/AdvReac Type Severity Reaction Status Date / Time No Known Drug Allergies Allergy Verified 04/13/21 17:24 Review of Systems <HUGO Trinidad - Last Filed: 06/05/21 18:03> Review of Systems Narrative: General: denies fever, chills Head/Neck: denies headache, neck pain Eyes: denies visual changes, eye pain Cardio: denies chest pain, palpitations Respiratory: denies shortness of breath, cough GI: denies abdominal pain, nausea, vomiting, or diarrhea : denies dysuria, hematuria MSK: denies joint pain, muscle weakness Skin: denies rash, itching Neuro: denies numbness, tingling Patient History <HUGO Trinidad - Last Filed: 06/05/21 18:03> Medical History Syncopal episodes Social History Smoking Status: Current some day smoker Smoking Status: Current some day smoker tobacco type: vaping alcohol intake frequency: other Substance Use Type: former substance user Exam <HUGO Trinidad Last Filed: 06/05/21 18:03> Narrative Exam Narrative: Independently reviewed vitals signs and nursing notes. General: Awake, alert, nontoxic, no cardiorespiratory distress Head/Neck: Atraumatic, neck full range of motion Eyes: EOMI, conjunctiva normal Nose: nares patent, no rhinorrhea Mouth/Throat: moist mucus membranes, posterior pharynx normal, no oral lesions Cardio: Regular rate and rhythm, no peripheral edema Respiratory: Breath sounds clear, respirations unlabored without wheezing, stridor, or rales. No retractions. GI: Abdomen soft, nontender MSK: Moves all extremities, neurovascularly intact Skin: Normal capillary refill, no rash Neuro: Normal speech and cognition, normal gait Initial Vital Signs Initial Vital Signs: Vital Signs Temperature 100.3 F H 06/05/21 12:29 Pulse Rate 72 06/05/21 12:29 Respiratory Rate 12 06/05/21 12:29 Blood Pressure 137/87 06/05/21 12:29 Pulse Oximetry 100 06/05/21 12:29 <Cristal Santiago DO - Last Filed: 06/09/21 18:12> Initial Vital Signs Initial Vital Signs: Vital Signs Temperature 100.3 F H 06/05/21 12:29 Pulse Rate 72 06/05/21 12:29 Respiratory Rate 12 06/05/21 12:29 Blood Pressure 137/87 06/05/21 12:29 Pulse Oximetry 100 06/05/21 12:29 Course <HUGO Trinidad - Last Filed: 06/05/21 18:03> Orders Ordered: ED Orders 06/05/21 12:34 COVID19 -Nasal swab/Pre-Proc Stat Vital Signs Vital signs: Vital Signs - 8 hr 06/05/21 12:29 Temperature 100.3 F H Pulse Rate 72 Respiratory Rate 12 Blood Pressure 137/87 Pulse Oximetry 100 <Cristal Santiago DO - Last Filed: 06/09/21 18:12> Orders Ordered: ED Orders 06/05/21 12:34 COVID19 -Nasal swab/Pre-Proc Stat Vital Signs Vital signs: Vital Signs - 8 hr 06/05/21 12:29 Temperature 100.3 F H Pulse Rate 72 Respiratory Rate 12 Blood Pressure 137/87 Pulse Oximetry 100 MDM - URI/Sore Throat <HUGO Trinidad - Last Filed: 06/05/21 18:03> Lab Data Labs: Lab Results 06/05/21 Range/Units 12:34 SARS-CoV-2 (PCR) Negative (Negative) MDM Narrative Medical decision making narrative: Mr. Hawkins presents to the ED for concern for COVID after possible exposure. His COVID test today was negative. He denies any other symptoms. Most likely a URI. Vital signs were stable during visit. Patient is appropriate and amenable to discharge home. Vital signs are stable on repeat examination is unremarkable. Patient has been informed of results. Patient has been given strict return to ER precautions for any new or worsening symptoms. Patient understands to follow up closely with outpatient providers as instructed. Patient understands plan and agrees to discharge home. All questions and concerns answered at this time. <Cristal Santiago DO - Last Filed: 06/09/21 18:12> Lab Data Labs: Lab Results 06/05/21 Range/Units 12:34 SARS-CoV-2 (PCR) Negative (Negative) Discharge Plan Departure Patient Disposition: Home Clinical Impression: Upper respiratory infection Qualifiers: URI type: unspecified URI Qualified Code(s): J06.9 - Acute upper respiratory infection, unspecified Activity Restrictions/Additional Instructions: *You have been diagnosed with a possible upper respiratory illness. Your COVID test was negative today. If you develop a fever, cough, shortness of breath, or chest pain please be seen in the emergency department. You are okay to go back to work as scheduled. *What to do: *Please continue to take your regular medications as directed. [ ] New medication prescriptions sent to your pharmacy: [ ] [ ] New medication written as a paper prescription [x ] No new medications given *Please follow up with your primary care provider in 2-3 days, call for an appointment. Let them know you were seen in the Emergency Department and that we ask that you be seen in follow up. We will electronically transmit a record of today's note if your PCP is in our system *If you do not have a primary care provider please contact the [facility] Resource line at [phone]. They will ask some questions about your medical history and help get you set up with a doctor in the community. *Return to Emergency Department if you should have any new, worsening or concerning symptoms, such as [fever greater than 101F, chills, worsening pain, persistent vomiting or other bothersome symptoms] Prescriptions: No Action alprazolam 0.25 mg tablet PO Q12HP PRNQty: 0 RF: 0 ketorolac 10 mg tablet 10 mg PO Q6H PRN (Reason: pain) Qty: 14 RF: 0 amoxicillin 500 mg capsule 500 mg PO TID Qty: 30 RF: 0 ondansetron 4 mg tablet,disintegrating 4 mg PO Q6-8H PRN (Reason: nausea and vomiting) Qty: 14 RF: 0 <Cristal Santiago DO - Last Filed: 06/09/21 18:12> Cosfredy ED Attending Tami Attestation: I was immediately available in the department for consultation. Documentation has been reviewed. I agree with assessment and plan.
== END 2021-06-05 16:07 | disposition home or self-care (01) ==
PROVIDERS: Emergency Medicine; Emergency Provider Nurse Practitioner Critical Care Medicine
DX: J06.9 Acute upper respiratory infection, unspecified (principal); Z20.822 Contact with and (suspected) exposure to COVID-19
CPT/HCPCS: 87635; 99281; 99282; C9803

== ENCOUNTER → 2022-01-29 15:13 | Outpatient (CLI) | payer BC, SELFPAY ==
--- NOTE | 2022-01-29 15:14 | DI.RAD.S_ITS ---
PROCEDURE: XR LUMBAR SPINE 2-3V INDICATIONS: back pain TECHNIQUE: 3 views of the lumbar spine were acquired. COMPARISON: None. FINDINGS: Bones: 5 [id number] vertebrae are present. There is normal bony alignment. No vertebral body compression fractures. Mild facet arthrosis of L4-5 and L5-S1. No suspicious bony lesions. Soft tissues: Overlying bowel gas pattern is normal. No suspicious soft tissue calcifications. IMPRESSION: Mild facet arthrosis of L4-5 and L5-S1, otherwise normal lumbar spine. Dictated by: Andrae Miles M.D. on 01/29/2022 at 15:56 Approved by: Andrae Miles M.D. on 01/29/2022 at 15:57
== END ==
PROVIDERS: PCP Internal Medicine; Referring Provider Internal Medicine; Visit Provider Internal Medicine
DX: M47.816 Spondylosis without myelopathy or radiculopathy, lumbar region (principal); M47.817 Spondylosis without myelopathy or radiculopathy, lumbosacral region; Z13.6 Encounter for screening for cardiovascular disorders; Z13.220 Encounter for screening for lipoid disorders; F41.9 Anxiety disorder, unspecified; M54.9 Dorsalgia, unspecified
CPT/HCPCS: 36415; 72100; 80053; 80061; 84443

== ENCOUNTER → 2022-01-29 15:36 | Outpatient (CLI) | payer BC, SELFPAY ==
[2022-01-29 16:55] LABS: Alanine Aminotransferase 16 IU/L (<50); Albumin 4.5 g/dL (3.5-5.0); Albumin Globulin Ratio 1.5 (1.0-2.8); Alkaline Phosphatase 60 U/L (38-126); Aspartate Aminotransferase 29 IU/L (17-59); BUN Creatinine Ratio 13.7 (6-22); Bilirubin Total 1.1 mg/dL (0.2-1.3); Blood Urea Nitrogen 13 mg/dL (9-20); Calcium 9.1 mg/dL (8.4-10.2); Carbon Dioxide 28 mmol/L (22-32); Chloride 104 mmol/L (98-107); Cholesterol 178 mg/dL (140-199); Estimated Glomerular Filt Rate > 60 mL/min (>60); Glucose 94 mg/dL (70-100); HDL Cholesterol 41 mg/dL (40-60); HEMOLYSIS < 15 (0-50); LDL Cholesterol Calculated 110 mg/dL (<100); Potassium 4.2 mmol/L (3.4-5.1); Sodium 141 mmol/L (137-145); Total Protein 7.5 g/dL (6.3-8.2); Triglycerides 136 mg/dL (35-150)
[2022-01-29 17:35] LABS: TSH w/ Reflex to FT4 1.99 uIU/mL (0.47-4.68)
== END ==
PROVIDERS: PCP Internal Medicine; Referring Provider Internal Medicine; Visit Provider Internal Medicine
DX: F41.9 Anxiety disorder, unspecified (principal); M54.9 Dorsalgia, unspecified; Z13.220 Encounter for screening for lipoid disorders; Z13.6 Encounter for screening for cardiovascular disorders
CPT/HCPCS: 36415; 80053; 80061; 84443

== ENCOUNTER 2023-03-31 14:33 | Emergency (ER) | payer BC, SELFPAY ==
[2023-03-31 14:35] VITALS: BP 139/80; PULSE 80; RESP 16; TEMP 37; O2SAT 97; BMI 26.3
--- NOTE | 2023-03-31 14:39 | DI.RAD.S_ITS ---
PROCEDURE: XR HAND RT MIN 3V INDICATIONS: impaled by fish sammi, poss foreign object TECHNIQUE: 3 views of the hand(s) acquired. COMPARISON: [facility], , HAND 3V RIGHT, 11/27/2011, 12:19. FINDINGS: Bones: No fractures or dislocations. Carpal bones are normally aligned. No suspicious bony lesions. Soft tissues: There is a radio opaque sammi between the right 1st and 2nd metacarpal. IMPRESSION: Radiopaque fish sammi between the right 1st and 2nd metacarpal in the thenar space. Dictated by: Andrae Miles M.D. on 03/31/2023 at 14:39 Approved by: Andrae Miles M.D. on 03/31/2023 at 14:42
[2023-03-31] MEDS: LIDOCAINE 1% 20 ML INJ (19:04)
--- NOTE | 2023-03-31 19:06 | ED_ITS ---
HPI - Skin/Abscess/Foreign Bdy General Chief complaint: Skin/Abscess/Foreign Body Stated complaint: STUNG BY A RATFISH/KATHRYN INBEDDED POSS Time Seen by Provider: 03/31/23 17:50 Source: patient Mode of arrival: Ambulatory History of Present Illness HPI narrative: 37-year-old right-hand dominant male who is here for evaluation of a fish kathryn imbedded in the palm of his right hand. He states that it occurred several hours ago. He was fishing for shrimp at the time. He did not know that this particular type of fish had a kathryn on the back of it. He reached out in the kathryn get stuck in his hand. He is having some tingling to his right thumb and right index finger. Related Data Previous Rx's Medication Instructions Recorded buspirone 5 mg tablet 5 mg PO BID #60 tabs 11/02/22 doxycycline hyclate 100 mg capsule 100 mg PO BID 10 days #20 caps 03/31/23 Allergies Allergy/AdvReac Type Severity Reaction Status Date / Time amoxicillin Allergy Unknown Rash Verified 03/31/23 14:35 Penicillins Allergy Unknown Rash Verified 03/31/23 14:35 Review of Systems Musculoskeletal Musculoskeletal: Reports system reviewed and no additional complaints, except as documented Integumentary/Breasts Skin/Breast: Reports system reviewed and no additional complaints, except as documented Hematologic/Lymphatic On Anticoagulants: No Patient History Medical History ADHD Anxiety Depression Opioid abuse, in remission PTSD (post-traumatic stress disorder) Shoulder pain Syncopal episodes Surgical History (Updated 01/19/22 @ 19:46 by Sharlene Ryan) Anesthesia History of cosmetic surgery (~1994) History of hand surgery (~2003) History of hand surgery (~2008) History of right knee surgery (~2008) Social History Smoking Status: Current some day smoker Smoking Status: Current some day smoker tobacco type: vaping alcohol intake frequency: other Substance Use Type: former substance user Exam Initial Vital Signs Initial Vital Signs: Vital Signs Temperature 98.6 F 03/31/23 14:35 Pulse Rate 80 03/31/23 14:35 Respiratory Rate 16 03/31/23 14:35 Blood Pressure 139/80 03/31/23 14:35 Pulse Oximetry 97 03/31/23 14:35 Oxygen Delivery Method Room Air 03/31/23 14:35 [facility] Head: normal to inspection and normocephalic Skin General: no rashes or lesions noted Neuro General: patient alert, patient awake and moves all extremities Extrem Other: Patient does have a small incision on the dorsum of thenar aspect of the right thumb. Procedures Orthopedic Splinting/Casting Injury #1: Side: right Upper Extremity Injury Location: wrist Upper Extremity Immobilizer: volar splint Post splinting neuro exam: intact Post splinting vascular exam: intact Placed by: Nursing Course Orders Ordered: ED Orders 03/31/23 14:39 XR hand RT min 3V Stat Discontinued Medications Lidocaine HCl (Lidocaine 2% Inj Mdv 20ml) 1 ml SUBCUT NOW ONE Stop: 03/31/23 18:08 Lidocaine HCl (Lidocaine 1% 20 Ml) 20 ml INJ INTRA-OP ONE Stop: 03/31/23 18:17 Last Admin: 03/31/23 19:04 Dose: 20 ml Documented By: CTS Lidocaine HCl (Lidocaine 2% Inj Mdv 20ml) 20 ml INJ INTRA-OP ONE Stop: 03/31/23 18:25 Vital Signs Vital signs: Vital Signs - 8 hr 03/31/23 14:35 Temperature 98.6 F Pulse Rate 80 Respiratory Rate 16 Blood Pressure 139/80 Pulse Oximetry 97 Oxygen Delivery Method Room Air MDM - Skin/Abscess/Foreign Bdy Imaging Data Extremity x-ray #1: Radiologist's Impression: PROCEDURE:? XR HAND RT MIN 3V ? INDICATIONS:? impaled by fish kathryn, poss foreign object ? TECHNIQUE:? 3 views of the hand(s) acquired.? ? COMPARISON:? [facility], , HAND 3V RIGHT, 11/27/2011, 12:19. ? FINDINGS:? ? Bones:? No fractures or dislocations.? Carpal bones are normally aligned.? No suspicious bony lesions.? ? Soft tissues:? There is a radio opaque kathryn between the right 1st and 2nd metacarpal. ? ? IMPRESSION:? Radiopaque fish kathryn between the right 1st and 2nd metacarpal in the thenar space. MDM Narrative Medical decision making narrative: The x-ray does show what appears to be a foreign body in the thenar eminence of the right hand. Attempted multiple times to remove this. Used x-ray to try to locate the foreign body. Also used ultrasound and a water bath but I was unable to remove it. I did discuss the case with Dr. Krause on-call for Orthopedic surgery who stated that the patient can be placed on antibiotics and he will follow the patient up this week in clinic. Patient was given return precautions. He expressed understanding and agreement. Discharge Plan Departure Patient Disposition: Home Clinical Impression: Foreign body of hand, right Activity Restrictions/Additional Instructions: The splint that was placed today can be removed. His just for soft tissue rest. Take the antibiotics as directed. Contact the orthopedic doctors at the number provided below for follow-up this week. You can wash your hands like normal. Return to the emergency department for new or worsening symptoms. Your antibiotic was sent to [facility]. Prescriptions: New doxycycline hyclate 100 mg capsule 100 mg PO BID 10 Days Qty: 20 0RF No Action buspirone 5 mg tablet 5 mg PO BID Qty: 60 3RF Referrals: Diallo Barrow MD [Primary Care Provider] - Terell Krause MD [Physician] - Stand Alone Forms: Patient Portal/API
[2023-03-31] MEDS: DOXYCYCLINE HYCLATE 100 MG TABLET PO (19:32)
[2023-03-31 19:33] VITALS: BP 136/74; PULSE 80; RESP 18; TEMP 36.6; O2SAT 96
== END 2023-03-31 19:34 | disposition home or self-care (01) ==
PROVIDERS: Emergency Provider Emergency Medicine; PCP Internal Medicine
DX: S61.441A Puncture wound with foreign body of right hand, initial encounter (principal); W45.8XXA Other foreign body or object entering through skin, initial encounter
CPT/HCPCS: 29125; 73130; 99284

== ENCOUNTER 2023-04-05 15:10 | Day surgery (SDC) | payer BC, SELFPAY ==
[2023-04-05 15:36] VITALS: BP 142/97; PULSE 69; RESP 18; TEMP 37.1; O2SAT 98; BMI 27.6
--- NOTE | 2023-04-05 15:49 | PM.PREOP ---
Pre-operative Note Interval Note History & Physical reviewed/Exam performed by Physician: Yes Changes to H&P: No
[2023-04-05] MEDS: LACTATED RINGERS 1,000 ML 84 ML IV (16:02)
[2023-04-05] MEDS: CEFAZOLIN 2 GM/100 ML PREMIX 100 ML IV (16:25)
--- NOTE | 2023-04-05 16:50 | SUR.OPER ---
Supine on padded OR bed, head on pillow, arms secured on padded arm boards at <90 degrees abduction, legs uncrossed, safety belt at thigh, tape over blanket over lower legs.
[2023-04-05 17:26] VITALS: BP 120/88; PULSE 105; RESP 20; TEMP 36.6; O2SAT 99
[2023-04-05] MEDS: BUPIVACAINE 0.5% (PF) 10 ML VIAL 20 ML INJ (17:30)
[2023-04-05 17:31] VITALS: BP 120/88; PULSE 73; RESP 16; O2SAT 100
[2023-04-05 17:36] VITALS: BP 155/102; PULSE 76; RESP 20; O2SAT 100
[2023-04-05 17:40] VITALS: BP 168/85; PULSE 76; RESP 20; O2SAT 100
--- NOTE | 2023-04-05 18:03 | P.OP_ITS ---
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 He was seen in the emergency room where an attempted removal was performed. They were unable to remove the spine and was referred for orthopedic consultation. He had progressive worsening hand pain progressive increased numbness increased swelling and erythema despite antibiotics and he is brought to the operating room urgently for irrigation and debridement and removal of a marine foreign body. Surgeon: Ann Velasco Click Yes if Unassisted: Yes Anesthesia Type: General Operative Notes Findings: Long sharp foreign body about 2 in consistent with a rat fish spine, foreign body was known to go into the region of the flexor sheath and there was distortion of the digital nerves but no complete laceration no obvious penetration of the flexor tendon she Closure Type: primary (Loose with a rubber band drain) Specimen(s): other (Culture and sensitivity and specimen for AFB and mycobacterium marinum) Applied: drain(s) (Rubber band) Estimated Blood Loss (mL): 30 Blood products transfused: none Tourniquet time (min): 28 Procedure in detail: Patient was brought to the operating room. He was given IV antibiotics. A time-out was performed. He underwent induction with general anesthesia. His right upper extremity was prepped and draped in standard sterile fashion. High arm tourniquet was applied and elevated for 28 minutes. Patient's right hand was prepped and draped sterilely. Patient had transverse incision over the 1st webspace it was extended in a Talha style extension proximally and distally some. Dissection was carried out through skin and subcutaneous tissues. There was obvious penetration of the soft tissues. I meticulously dissected down along the tract of the penetration. A large foreign body was encountered it was about 2 in and consistent with a spine or a spike from a fish it was meticulously removed with a Oral. It was fairly large about the size of a mcneal Sprout. I then meticulously dissected along the tract of the penetration. Damion had gone in contact with the flexor sheath there was no obvious penetration. It was gently and meticulously irrigated and debrided along the track. Small amount of synovium in soft tissue was removed. Deep cultures were taken. We sent them for anaerobic and aerobic cultures as well as mycobacterium marinum. The wound was meticulously irrigated with normal saline. A small rubber band drain was placed. Intraoperative films revealed that the foreign body had been removed. Mini C-arm was used. The wound was closed loosely with interrupted nylon over the rubber band drain. The wound was dressed sterilely. Complications: none Post-operative Condition: stable Disposition: same day surgery Plan for aftercare: Continue with oral antibiotics. He was on doxycycline which I would continue for at least 1 additional week. If he is having increased infectious symptoms we could add ciprofloxacin. He will return to clinic in about a week for suture removal. It is okay for him to begin [id number] exercises for his hand. He is going to use anti-inflammatories as his pain medication. It is also okay for him to take Tylenol.
== END 2023-04-05 18:01 | disposition home or self-care (01) ==
PROVIDERS: PCP Internal Medicine; Referring Provider Orthopaedic Surgery; Visit Provider Orthopaedic Surgery
PROC: (CPT 20525; principal; 2023-04-05 16:00)
DX: S60.551A Superficial foreign body of right hand, initial encounter (principal)
CPT/HCPCS: 20525; 87070; 87075; 87116; 87205; 87206; J0690; J1100; J1885; J2405; J2704

== ENCOUNTER → 2023-05-21 16:48 | Outpatient (CLI) | payer BC, SELFPAY ==
[2023-05-21 18:24] LABS: Alanine Aminotransferase 18 IU/L (<50); Albumin 4.6 g/dL (3.5-5.0); Albumin Globulin Ratio 1.4 (1.0-2.8); Alkaline Phosphatase 61 U/L (38-126); Aspartate Aminotransferase 29 IU/L (17-59); BUN Creatinine Ratio 14.8 (6-22); Bilirubin Total 1.7 mg/dL (0.2-1.3); Blood Urea Nitrogen 13 mg/dL (9-20); Calcium 9.7 mg/dL (8.4-10.2); Carbon Dioxide 26 mmol/L (22-32); Chloride 104 mmol/L (98-107); Estimated Glomerular Filt Rate > 60 mL/min (>60); Globulin 3.2 g/dL (1.7-4.1); Glucose 87 mg/dL (70-100); HEMOLYSIS < 15 (0-50); Potassium 4.1 mmol/L (3.4-5.1); Sodium 139 mmol/L (137-145); Total Protein 7.8 g/dL (6.3-8.2)
[2023-05-21 18:31] LABS: Add Manual Diff / Slide Review NO; Basophils Absolute Auto 0 /uL (0-100); Basophils Percent Auto 0.9 % (0-2); Eosinophils Absolute Auto 200 /uL (0-450); Eosinophils Percent Auto 5.6 % (2-4); Hematocrit 39.3 % (41-53); Hemoglobin 13.8 g/dL (13.5-17.5); Lymphocytes Absolute Auto 1200 /uL (1100-4500); Lymphocytes Percent Auto 27.4 % (25-40); Mean Corpuscular HGB Conc 35.2 % (30-36); Mean Corpuscular Hemoglobin 30.3 PG (26-34); Mean Corpuscular Volume 85.9 fL (80-100); Monocytes Absolute Auto 500 /uL (0-900); Neutrophils Absolute Auto 2300 /uL (1500-7000); Neutrophils Percent Auto 55.1 % (50-75); Platelet Count 282 X10^3/uL (150-400); Red Blood Cell Count 4.57 X10^6/uL (4.5-5.9); White Blood Cell Count 4.3 X10^3/uL (4.5-11.0)
== END ==
LOC: LAB 16:48
PROVIDERS: PCP Internal Medicine; Referring Provider Internal Medicine; Visit Provider Internal Medicine
DX: R19.7 Diarrhea, unspecified (principal)
CPT/HCPCS: 36415; 80053; 85025

== ENCOUNTER 2023-06-16 07:35 | Emergency (ER) | payer BC, SELFPAY ==
[2023-06-16 07:41] VITALS: BP 138/88; PULSE 74; RESP 16; TEMP 36.7; O2SAT 98; BMI 26.9
--- NOTE | 2023-06-16 08:12 | ED.GIBLEED ---
HPI - GI Bleed General Chief complaint: GI Bleed Stated complaint: blood in stool T-30 Time Seen by Provider: 06/16/23 07:56 Source: patient Mode of arrival: Family Vehicle History of Present Illness HPI Narrative: 37-year-old male who is here for evaluation of blood in his stool and clots for approximately 1 month. Symptoms started after he had a procedure to remove a fish sammi from his right hand. He was on doxycycline at the time. He has seen his primary doctor about these symptoms and has completed a 10 day course of metronidazole. He is continuing to have symptoms. He is having some cramping and abdominal pain. No fevers. Some abdominal pain with bowel movements but no rectal pain. No blood in his urine. No vomiting blood. He is not on blood thinners. Related Data Previous Rx's Medication Instructions Recorded vancomycin 125 mg capsule 125 mg PO QID 14 days #56 caps 06/16/23 Allergies Allergy/AdvReac Type Severity Reaction Status Date / Time No Known Drug Allergies Allergy Verified 05/21/23 16:31 Review of Systems Constitutional Constitutional: Reports system reviewed and no additional complaints, except as documented Gastrointestinal Gastrointestinal: Reports system reviewed and no additional complaints, except as documented Genitourinary Genitourinary: Reports system reviewed and no additional complaints, except as documented Integumentary/Breasts Skin/Breast: Reports system reviewed and no additional complaints, except as documented Hematologic/Lymphatic On Anticoagulants: No Patient History Medical History ADHD Anxiety Depression Opioid abuse, in remission PTSD (post-traumatic stress disorder) Shoulder pain Syncopal episodes Surgical History (Updated 01/19/22 @ 19:46 by Sharlene Ryan) Anesthesia History of cosmetic surgery (~1994) History of hand surgery (~2003) History of hand surgery (~2008) History of right knee surgery (~2008) Social History household members: spouse Smoking Status: Current some day smoker alcohol intake: current Smoking Status: Current some day smoker tobacco type: vaping alcohol intake frequency: a few times a week Substance Use Type: former substance user Exam Initial Vital Signs Initial Vital Signs: Vital Signs Temperature 98.0 F 06/16/23 07:41 Pulse Rate 74 06/16/23 07:41 Respiratory Rate 16 06/16/23 07:41 Blood Pressure 138/88 06/16/23 07:41 Pulse Oximetry 98 06/16/23 07:41 Oxygen Delivery Method Room Air 06/16/23 07:41 Const General: cooperative, comfortable and No ill appearing Resp Effort & Inspection: normal respiratory effort Cardio Rate: regular rate GI Inspection: normal to inspection and non-distended Neuro General: patient alert, patient awake and moves all extremities Extrem General: normal to inspection Course Orders Ordered: ED Orders 06/16/23 08:59 GI Panel (Film Array) Stat Vital Signs Vital signs: Vital Signs - 8 hr 06/16/23 07:41 Temperature 98.0 F Pulse Rate 74 Respiratory Rate 16 Blood Pressure 138/88 Pulse Oximetry 98 Oxygen Delivery Method Room Air MDM - GI Bleed Lab Data Attestation: I reviewed the patient's lab results. Labs: Lab Results 06/16/23 Range/Units 08:59 Stl C. cayetanensis PCR Not detected (Not Detect) Stool Rotavirus (PCR) Not detected (Not Detect) Stool Adenovirus (PCR) Not detected (Not Detect) Stool Astrovirus (PCR) Not detected (Not Detect) Stool Cryptosporidium PCR Not detected (Not Detect) Stl E.coli Shiga Tox PCR Not detected (Not Detect) St Sh/Enteroin Ecoli PCR Not detected (Not Detect) Stool E coli O157 PCR Not Reportable Stl Enterotoxigenic E PCR Not detected (Not Detect) Stool EPEC (PCR) Not detected (Not Detect) Stl E. histolytica PCR Not detected (Not Detect) Stool Giardia Lamblia PCR Not detected (Not Detect) Stool Sapovirus (PCR) Not detected (Not Detect) Stl P. shigelloides PCR Not detected (Not Detect) St Y.enterocolitica PCR Not detected (Not Detect) Stool Vibrio (PCR) Not detected (Not Detect) Stl Vibrio cholerae PCR Not detected (Not Detect) Stl Enteroaggr Ecoli PCR Not detected (Not Detect) Stl Norovirus GI/GII PCR Not detected (Not Detect) Campylobacter (PCR) Not detected (Not Detect) C. difficile Tox (PCR) Detected H (Not Detect) Salmonella (PCR) Not detected (Not Detect) MDM Narrative Medical decision making narrative: Patient does have a relatively benign exam. He has been having bloody stool since his surgery several weeks ago. His stool culture today is positive for C diff. He has completed a course of metronidazole however is still having symptoms. Will start the patient on oral vancomycin. Will have him continue to follow-up with his primary doctor and also GI. He was given return precautions. He expressed understanding and agreement. Discharge Plan Departure Patient Disposition: Home Clinical Impression: Clostridium difficile diarrhea Instructions: Clostridioides (Clostridium) difficile Infection Activity Restrictions/Additional Instructions: Take the new antibiotic as directed. Tomorrow contact your primary doctor for a follow-up to discuss further evaluation. Return to the emergency department for new or worsening symptoms. Prescriptions: New vancomycin 125 mg capsule 125 mg PO QID 14 Days Qty: 56 0RF Referrals: Radha Cottrell MD [Physician] - Diallo Barrow MD [Primary Care Provider] - Stand Alone Forms: Patient Portal/API
[2023-06-16 11:06] LABS: Campylobacter Not Detected (Not Detect); Clostridium difficile toxin AB Detected (Not Detect); Plesiomonsa shigelloides Not Detected (Not Detect); Salmonella Not Detected (Not Detect); Vibrio Not Detected (Not Detect); Vibrio cholerae Not Detected (Not Detect); Yersinia enterocolitica Not Detected (Not Detect)
[2023-06-16 11:07] LABS: Adenovirus F 40/41 Not Detected (Not Detect); Astrovirus Not Detected (Not Detect); Cryptosporidium Not Detected (Not Detect); Cyclospora cayetanensis Not Detected (Not Detect); Entamoeba histolytica Not Detected (Not Detect); Enteroaggregative E.coli Not Detected (Not Detect); Enteropathogenic E.coli Not Detected (Not Detect); Enterotoxigenic E.coli It/st Not Detected (Not Detect); Giardia lamblia Not Detected (Not Detect); Norovirus GI/GII Not Detected (Not Detect); Rotavirus A Not Detected (Not Detect); Sapovirus Not Detected (Not Detect); Shiga-like toxin-prod E.coli Not Detected (Not Detect); Shigella/Enteroinvasive E.coli Not Detected (Not Detect)
[2023-06-16 11:28] VITALS: BP 130/66; PULSE 63; RESP 20; O2SAT 99
== END 2023-06-16 11:37 | disposition home or self-care (01) ==
PROVIDERS: Emergency Provider Emergency Medicine; PCP Internal Medicine
DX: A04.72 Enterocolitis due to Clostridium difficile, not specified as recurrent (principal)
CPT/HCPCS: 87507; 99282

== ENCOUNTER 2023-06-19 10:47 | Emergency (ER) | payer BC, SELFPAY ==
[2023-06-19 10:50] VITALS: BP 132/74; PULSE 72; RESP 14; TEMP 36.1; O2SAT 98; BMI 26.9
--- NOTE | 2023-06-19 11:13 | ED.SKABFB ---
HPI - Skin/Abscess/Foreign Bdy General Chief complaint: Skin/Abscess/Foreign Body Stated complaint: allergic reaction to medication Time Seen by Provider: 06/19/23 11:01 Source: patient Mode of arrival: Ambulatory Limitations: no limitations History of Present Illness HPI narrative: Patient is a 37-year-old male. I evaluated him here in the emergency department a couple days ago. He was diagnosed with C diff. I placed him on oral vancomycin. He states he is taken approximately 9 pills of this. Yesterday he developed a rash specifically in his back and on his right abdomen. No problems breathing. No problem swallowing. No fevers. He is still having diarrhea. He was concerned about an allergic reaction to the medication. He did take a Benadryl. He feels like his symptoms today are better than what they were yesterday. Related Data Previous Rx's Medication Instructions Recorded vancomycin 125 mg capsule 125 mg PO QID 14 days #56 caps 06/16/23 Allergies Allergy/AdvReac Type Severity Reaction Status Date / Time vancomycin Allergy Verified 06/19/23 10:50 Review of Systems Constitutional Constitutional: Reports system reviewed and no additional complaints, except as documented Gastrointestinal Gastrointestinal: Reports system reviewed and no additional complaints, except as documented Genitourinary Genitourinary: Reports system reviewed and no additional complaints, except as documented Integumentary/Breasts Skin/Breast: Reports system reviewed and no additional complaints, except as documented Hematologic/Lymphatic On Anticoagulants: No Patient History Medical History ADHD Anxiety Depression Opioid abuse, in remission PTSD (post-traumatic stress disorder) Shoulder pain Syncopal episodes Surgical History (Updated 01/19/22 @ 19:46 by Sharlene Ryan) Anesthesia History of cosmetic surgery (~1994) History of hand surgery (~2003) History of hand surgery (~2008) History of right knee surgery (~2008) Social History household members: spouse Smoking Status: Current some day smoker alcohol intake: current Smoking Status: Current some day smoker tobacco type: vaping alcohol intake frequency: holidays/special occasions only Substance Use Type: former substance user Exam Initial Vital Signs Initial Vital Signs: Vital Signs Temperature 97.0 F L 06/19/23 10:50 Pulse Rate 72 06/19/23 10:50 Respiratory Rate 14 06/19/23 10:50 Blood Pressure 132/74 06/19/23 10:50 Pulse Oximetry 98 06/19/23 10:50 Oxygen Delivery Method Room Air 06/19/23 10:50 HENMT Head: normal to inspection and normocephalic Resp Effort & Inspection: normal respiratory effort Skin Other: Very slight rash to his right side abdomen and potentially on his back. No vesicles. No urticaria. Neuro General: patient alert, patient awake and moves all extremities Extrem General: normal to inspection and capillary refill normal Course Vital Signs Vital signs: Vital Signs - 8 hr 06/19/23 10:50 Temperature 97.0 F L Pulse Rate 72 Respiratory Rate 14 Blood Pressure 132/74 Pulse Oximetry 98 Oxygen Delivery Method Room Air MDM - Skin/Abscess/Foreign Bdy MDM Narrative Medical decision making narrative: Patient did have a rash on his abdomen although I am not 100% convinced that it caused by the vancomycin. No fevers. He is certainly not having anaphylactic reaction. It did seem to improve after the Benadryl. Given his prior diagnosis and the fact that this vancomycin as the 4th antibiotic that he is had over the past month I recommended that he continue with the antibiotic and take the Benadryl if the rash comes back again. He was given return precautions. He expressed understanding and agreement. Discharge Plan Departure Patient Disposition: Home Instructions: DI for Rash Activity Restrictions/Additional Instructions: I recommend that you continue to take the vancomycin as directed and use Benadryl if needed. If your symptoms are worsening such as problems breathing or vomiting for fevers than you do need to return to the emergency department for further evaluation. Prescriptions: No Action vancomycin 125 mg capsule 125 mg PO QID 14 Days Qty: 56 0RF Referrals: Diallo Barrow MD [Primary Care Provider] - Stand Alone Forms: Patient Portal/API
== END 2023-06-19 11:17 | disposition home or self-care (01) ==
PROVIDERS: Emergency Provider Emergency Medicine; PCP Internal Medicine
DX: R21 Rash and other nonspecific skin eruption (principal); T78.40XA Allergy, unspecified, initial encounter
CPT/HCPCS: 99281

== ENCOUNTER 2023-07-01 20:51 | Emergency (ER) | payer BC, SELFPAY ==
[2023-07-01] VITALS (9 sets, daily range): BP systolic 133–152; BP diastolic 64–95; PULSE 68–85; RESP 20; TEMP 36.6; O2SAT 97–99; BMI 26.9
[2023-07-01 21:27] LABS: Add Manual Diff / Slide Review NO; Basophils Absolute Auto 100 /uL (0-100); Basophils Percent Auto 0.8 % (0-2); Eosinophils Absolute Auto 400 /uL (0-450); Hematocrit 32.5 % (41-53); Hemoglobin 11.2 g/dL (13.5-17.5); Lymphocytes Absolute Auto 1300 /uL (1100-4500); Lymphocytes Percent Auto 19.5 % (25-40); Mean Corpuscular HGB Conc 34.5 % (30-36); Mean Corpuscular Hemoglobin 30.4 PG (26-34); Mean Corpuscular Volume 88.1 fL (80-100); Monocytes Absolute Auto 600 /uL (0-900); Monocytes Percent Auto 8.8 % (3-14); Neutrophils Absolute Auto 4300 /uL (1500-7000); Neutrophils Percent Auto 64.9 % (50-75); Platelet Count 301 X10^3/uL (150-400); Red Blood Cell Count 3.69 X10^6/uL (4.5-5.9); White Blood Cell Count 6.6 X10^3/uL (4.5-11.0)
[2023-07-01 21:35] LABS: Alanine Aminotransferase 18 IU/L (<50); Albumin 3.5 g/dL (3.5-5.0); Albumin Globulin Ratio 1.2 (1.0-2.8); Alkaline Phosphatase 44 U/L (38-126); Aspartate Aminotransferase 23 IU/L (17-59); BUN Creatinine Ratio 10.5 (6-22); Bilirubin Total 0.6 mg/dL (0.2-1.3); Blood Urea Nitrogen 8 mg/dL (9-20); Calcium 8.8 mg/dL (8.4-10.2); Carbon Dioxide 27 mmol/L (22-32); Chloride 102 mmol/L (98-107); Estimated Glomerular Filt Rate > 60 mL/min (>60); Glucose 109 mg/dL (70-100); HEMOLYSIS 29 (0-50); Lactate (Lactic Acid) 1.1 mmol/L (0.7-2.1); Potassium 4.1 mmol/L (3.4-5.1); Sodium 135 mmol/L (137-145); Total Protein 6.5 g/dL (6.3-8.2)
--- NOTE | 2023-07-01 22:00 | ED_ITS ---
HPI - Abdominal Pain General Chief Complaint: Abdominal Pain Stated Complaint: ABD pain Time Seen by Provider: 07/01/23 21:59 Source: patient Mode of arrival: Ambulatory History of Present Illness HPI narrative: Patient 37 year old male who presents today with ongoing bloody diarrhea and abdominal pain. In March he had fish sammi imbedded in his hand. Since then he has had diarrhea and was diagnosed with C diff colitis he was put on vancomycin which he finished today. He reports having extreme fatigue ongoing abdominal cramping. He continues to have bloody stools. No nausea or vomiting no further fever. He gets extremely fatigued very easily. He reports that today he was walking in the grocery store cover pale lightheaded thought he might pass out but he did not. He was supposed to have PCP appointment last week but unfort unately got canceled. He would like to go to a specialist but is overall frustrated that he is not getting any better. He is not lost any weight he has some upper abdominal cramping he does not take Tylenol or ibuprofen for it. 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 Does not feel like he is able to work. Really does not feel like he is recovering. He is quite frustrated. Related Data Previous Rx's Medication Instructions Recorded triamcinolone acetonide 0.1 % 1 applic topical QID PRN rash #80 06/20/23 topical cream grams vancomycin 125 mg capsule 125 mg PO QID #56 caps 07/01/23 Allergies Allergy/AdvReac Type Severity Reaction Status Date / Time vancomycin Allergy Verified 06/20/23 16:27 Review of Systems Review of Systems ROS Unobtainable: All systems reviewed & are unremarkable except as noted in HPI and below Patient History Medical History ADHD Anxiety Clostridium difficile diarrhea Depression Opioid abuse, in remission PTSD (post-traumatic stress disorder) Shoulder pain Syncopal episodes Surgical History Anesthesia History of cosmetic surgery (~1994) History of hand surgery (~2003) History of hand surgery (~2008) History of right knee surgery (~2008) Social History household members: spouse Smoking Status: Former smoker alcohol intake: current Smoking Status: Former smoker tobacco type: vaping alcohol intake frequency: holidays/special occasions only Substance Use Type: former substance user Exam Initial Vital Signs Initial Vital Signs: Vital Signs Pulse Rate 85 07/01/23 20:57 Blood Pressure 152/95 H 07/01/23 20:57 Pulse Oximetry 98 07/01/23 20:57 GENERAL: Alert well-appearing 7-year-old male and in no acute distress. HEENT: Head atraumatic,EOMI, pupils reactive, face symmetric, moist mucous membranes CARDIOVASCULAR: Regular rate and rhythm without murmurs, rubs or gallops. RESPIRATORY: Breath sounds equal bilaterally, no wheezes rales or rhonchi. ABDOMEN: Soft, mild tenderness epigastric region no right upper quadrant tenderness abdomen is soft nondistended EXTREMITIES: Normal range of motion, no clubbing or edema. Neurovascularly intact NEUROLOGICAL: Alert and oriented x4. SKIN: Warm, dry, no laceration, no petechiae, no rashes or lesions. Course Orders Ordered: ED Orders 07/01/23 21:13 CBC Auto Diff [Complete Blood Count AUTO DIFF] Stat CMP [Comprehensive Metabolic Panel] Stat Lactate (Lactic Acid) Stat 07/01/23 22:11 CT abdomen pelvis w con Stat Discontinued Medications Sodium Chloride (Normal Saline 0.9%) 1,000 mls @ 1,000 mls/hr IV BOLUS ONE Stop: 07/01/23 23:10 Last Infusion: 07/01/23 23:58 Dose: 0 mls/hr Documented By: Admin: 07/01/23 22:56 Dose: 1,000 mls/hr Documented By: JUSTYN Ketorolac Tromethamine (Ketorolac 30 Mg/Ml Vial) 15 mg IV NOW ONE Stop: 07/01/23 22:12 Last Admin: 07/01/23 22:55 Dose: 15 mg Documented By: JUSTYN Vital Signs Vital signs: Vital Signs - 8 hr 07/01/23 21:06 07/01/23 20:57 07/01/23 20:57 Temperature 97.9 F Pulse Rate 84 85 Respiratory Rate 20 Blood Pressure 152/95 H 152/95 H Pulse Oximetry 97 98 Oxygen Delivery Method Room Air 07/01/23 21:00 07/01/23 21:30 07/01/23 22:00 Temperature Pulse Rate 78 85 78 Respiratory Rate Blood Pressure Pulse Oximetry 99 98 97 Oxygen Delivery Method 07/01/23 22:53 07/01/23 23:00 07/01/23 23:30 Temperature Pulse Rate 84 71 68 Respiratory Rate Blood Pressure Pulse Oximetry 98 98 98 Oxygen Delivery Method 07/01/23 23:44 07/01/23 23:44 Temperature Pulse Rate 72 Respiratory Rate Blood Pressure 133/64 Pulse Oximetry 99 Oxygen Delivery Method MDM - Abdominal Pain Lab Data 07/01/23 21:13 07/01/23 21:13 Labs: Lab Results 07/01/23 07/01/23 07/01/23 Range/Units 21:13 21:13 21:13 WBC 6.6 (4.5-11.0) X10^3/uL RBC 3.69 L (4.5-5.9) X10^6/uL Hgb 11.2 L (13.5-17.5) g/dL Hct 32.5 L (41-53) % MCV 88.1 (80-100) fL MCH 30.4 (26-34) PG MCHC 34.5 (30-36) % RDW 13.0 (11.6-14.8) % Plt Count 301 (150-400) X10^3/uL Neut % (Auto) 64.9 (50-75) % Lymph % (Auto) 19.5 L (25-40) % [place] % (Auto) 8.8 (3-14) % Eos % (Auto) 6.0 H (2-4) % Baso % (Auto) 0.8 (0-2) % Neut # (Auto) 4300 (3386-9877) /uL Lymph # (Auto) 1300 (6320-1759) /uL [place] # (Auto) 600 (0-900) /uL Eos # (Auto) 400 (0-450) /uL Baso # (Auto) 100 (0-100) /uL Sodium 135 L (137-145) mmol/L Potassium 4.1 (3.4-5.1) mmol/L Chloride 102 (98-107) mmol/L Carbon Dioxide 27 (22-32) mmol/L BUN 8 L (9-20) mg/dL Creatinine 0.76 (0.66-1.25) mg/dL Estimated GFR > 60 (>60) mL/min BUN/Creatinine Ratio 10.5 (6-22) Glucose 109 H (70-100) mg/dL Lactate 1.1 (0.7-2.1) mmol/L Calcium 8.8 (8.4-10.2) mg/dL Total Bilirubin 0.6 (0.2-1.3) mg/dL AST 23 (17-59) IU/L ALT 18 (<50) IU/L Alkaline Phosphatase 44 (38-126) U/L Total Protein 6.5 (6.3-8.2) g/dL Albumin 3.5 (3.5-5.0) g/dL Globulin 3.0 (1.7-4.1) g/dL Albumin/Globulin Ratio 1.2 (1.0-2.8) Imaging Data CT scan - abdomen/pelvis: Radiologist's Impression: PROCEDURE:? CT ABDOMEN PELVIS W CON ? INDICATIONS:? ab pain ? TECHNIQUE:? After the administration of intravenous contrast, axial sections acquired from the lung bases to the pubic symphysis.? Coronal and sagittal reformats were performed.? For radiation dose reduction, the following was used:? automated exposure control, adjustment of mA and/or kV according to patient size.? ? COMPARISON:? None. ? FINDINGS:? Image quality:? Good ? Lower chest:? Unremarkable lung bases.? Small amount of fluid is seen in the distal esophagus. ? Solid organs:? Liver is unremarkable.? Gallbladder is unremarkable.? No path ologic dilation of the biliary system or pancreatic duct.? Borderline splenomegaly of 14 cm.? No adrenal nodules.? No hydronephrosis. ? Vessels and lymph nodes:? The main portal vein appears patent.? No abdominal aortic aneurysm.? No pathologic lymph nodes by size criteria. ? Bowel and peritoneum:? Nondilated appendix is seen.? No small bowel obstruction.? No drainable abscess or pathologic ascites.? Under distended bowel is difficult to evaluate. ?Within this limitation, mild diffuse colonic wall thickening is suspected to be present, particularly noticeable in the ascending colon. ? Body wall:? Tiny fat containing umbilical hernia. ? Pelvis:? Bladder is unremarkable.? Prostate is not well seen on this study. ? Bones:? Mild degenerative changes.? There is ill-defined sclerotic lesion in the left posterior iliac.? Suspected sacroiliac sclerosis and sequelae of some subtle erosions. ? ? IMPRESSION:? No bowel obstruction.? Nondilated appendix. Mild infectious or inflammatory colitis. ? Subtle, indeterminate mildly sclerotic region in the left posterior iliac bone ().? Sacroiliac symmetric periarticular sclerosis and possible tiny erosions concerning for sacroiliitis.? MRI would be a more ideal imaging modality for evaluation if clinically indicated ? (IBD and sacroiliitis are sometimes associated, correlate with clinical history) ? Splenomegaly. ? Other findings as above.? ? Dictated by: Сергей Mijares M.D. on 07/01/2023 at 22:44 ? ? [facility] Narrative Medical decision making narrative: Patient 37-year-old male presents today with ongoing abdominal pain weakness fatigue and diarrhea. Finished vancomycin today but still having bloody stools. He is not anemic requiring blood transfusion. It sounds as though he was put on multiple antibiotics for his fish skin infection. So I suspect it is antibiotic induced. He was unable to provide us with a stool sample today. However he is continues to feel weak and fatigued. Recommend Infectious Disease and GI referral. His PCP has put in a referral already to [facility] they are just waiting. CT was ordered it had not been ordered and does confirm a gastroenteritis without any other masses or obstruction. He was given Toradol which seemed to help his pain Discharge Plan Departure Patient Disposition: Home Clinical Impression: Gastroenteritis Instructions: Antibiotic-associated Colitis -- C difficile, DI for Bacterial Gastroenteritis -- Adult Activity Restrictions/Additional Instructions: *You have been diagnosed with gastroenteritis likely due to C diff *What to do: At this time I do strongly encourage you to get referrals to In fectious Disease and Gastroenterology. For now I do recommend continuing your vancomycin *Continue to take medications as directed Vancomycin 125 4 times a day for 14 days--> SAFEWAY *Follow up with your primary care provider in 2-3 days or call [phone] *Return to ER if you should have [such as] [or] any new, worsening or concerning symptoms Prescriptions: New vancomycin 125 mg capsule 125 mg PO QID Qty: 56 0RF No Action triamcinolone acetonide 0.1 % cream 1 applic topical QID MDD 5 gm PRN (Reason: rash) Qty: 80 0RF Rx Instructions: Apply to affected area (trunk) up to 4x per day Referrals: Diallo Barrow MD [Primary Care Provider] - Stand Alone Forms: Patient Portal/API
--- NOTE | 2023-07-01 22:11 | DI.CT.S_ITS ---
PROCEDURE: CT ABDOMEN PELVIS W CON INDICATIONS: ab pain TECHNIQUE: After the administration of intravenous contrast, axial sections acquired from the lung bases to the pubic symphysis. Coronal and sagittal reformats were performed. For radiation dose reduction, the following was used: automated exposure control, adjustment of mA and/or kV according to patient size. COMPARISON: None. FINDINGS: Image quality: Good Lower chest: Unremarkable lung bases. Small amount of fluid is seen in the distal esophagus. Solid organs: Liver is unremarkable. Gallbladder is unremarkable. No pathologic dilation of the biliary system or pancreatic duct. Borderline splenomegaly of 14 cm. No adrenal nodules. No hydronephrosis. Vessels and lymph nodes: The main portal vein appears patent. No abdominal aortic aneurysm. No pathologic lymph nodes by size criteria. Bowel and peritoneum: Nondilated appendix is seen. No small bowel obstruction. No drainable abscess or pathologic ascites. Under distended bowel is difficult to evaluate. Within this limitation, mild diffuse colonic wall thickening is suspected to be present, particularly noticeable in the ascending colon. Body wall: Tiny fat containing umbilical hernia. Pelvis: Bladder is unremarkable. Prostate is not well seen on this study. Bones: Mild degenerative changes. There is ill-defined sclerotic lesion in the left posterior iliac. Suspected sacroiliac sclerosis and sequelae of some subtle erosions. IMPRESSION: No bowel obstruction. Nondilated appendix. Mild infectious or inflammatory colitis. Subtle, indeterminate mildly sclerotic region in the left posterior iliac bone (4/45). Sacroiliac symmetric periarticular sclerosis and possible tiny erosions concerning for sacroiliitis. MRI would be a more ideal imaging modality for evaluation if clinically indicated (IBD and sacroiliitis are sometimes associated, correlate with clinical history) Splenomegaly. Other findings as above. Dictated by: Сергей Mijares M.D. on 07/01/2023 at 22:44 Approved by: Сергей Mijares M.D. on 07/01/2023 at 22:51
[2023-07-01] MEDS: KETOROLAC 30 MG/ML VIAL 15 MG IV (22:55)
[2023-07-01] MEDS: SODIUM CHLORIDE 0.9% 1,000 ML 1000 ML IV (22:56)
== END 2023-07-02 00:01 | disposition home or self-care (01) ==
PROVIDERS: Emergency Provider Emergency Medicine; PCP Internal Medicine
DX: K52.9 Noninfective gastroenteritis and colitis, unspecified (principal)
CPT/HCPCS: 36415; 74177; 80053; 83605; 85025; 96361; 96374; 99284; J1885

== ENCOUNTER 2023-07-22 14:30 | Emergency (ER) | payer BC, SELFPAY ==
[2023-07-22] VITALS (10 sets, daily range): BP systolic 124–146; BP diastolic 61–75; PULSE 57–107; RESP 18; TEMP 36.9–37.4; O2SAT 98–99; BMI 25.3
--- NOTE | 2023-07-22 15:01 | DI.CT.S_ITS ---
PROCEDURE: CT ABDOMEN PELVIS W CON INDICATIONS: bloody diarrhea/ h/o C diff TECHNIQUE: After the administration of intravenous contrast, axial sections acquired from the lung bases to the pubic symphysis. Coronal and sagittal reformats were performed. For radiation dose reduction, the following was used: automated exposure control, adjustment of mA and/or kV according to patient size. COMPARISON: Located Within [facility], CT, CT ABDOMEN PELVIS W CON, 07/01/2023, 22:18. FINDINGS: Image quality: Excellent. Lung bases: Unremarkable. Heart: No significant findings. ABDOMEN: Liver: Unremarkable. Gallbladder: Unremarkable. Biliary ducts: Unremarkable. Pancreas: Unremarkable. Spleen: Unremarkable. Adrenal Glands: Unremarkable. Kidneys and Ureters: Unremarkable. Stomach and Bowel: Stomach, small bowel loops, and colon are normal in caliber. There is diffuse colonic wall thickening consistent with colitis. Normal appendix. Peritoneum: No abnormal intraperitoneal fluid. No free air. Ventral Wall: No hernias. Abdominal Nodes: No retroperitoneal or mesenteric adenopathy by size criteria. Vessels: Aorta and inferior vena cava are normal in size. PELVIS: Pelvic Organs: Unremarkable. Bladder: Unremarkable. Pelvic Nodes: No enlarged lymph nodes. Miscellaneous: No hernias are seen. Bones: There is a 1.1 cm indeterminate sclerosis in the left iliac bone adjacent to the sacroiliac joint, unchanged. Sclerotic changes are seen at the sacroiliac joints bilaterally with subtle bony erosions, consistent with sacroiliitis. IMPRESSION: 1. Diffuse colonic wall thickening consistent with C-diff colitis. A differential diagnosis is inflammatory bowel disease such as ulcerative colitis. Recommend clinical correlation. 2. Unchanged subtle indeterminate sclerotic focus in the left iliac bone. Dictated by: Henry Cerda M.D. on 07/22/2023 at 15:44 Approved by: Henry Cerda M.D. on 07/22/2023 at 15:49
[2023-07-22 15:13] LABS: Add Manual Diff / Slide Review NO; Basophils Absolute Auto 0 /uL (0-100); Basophils Percent Auto 0.5 % (0-2); Eosinophils Absolute Auto 400 /uL (0-450); Eosinophils Percent Auto 4.8 % (2-4); Hematocrit 28.4 % (41-53); Hemoglobin 9.7 g/dL (13.5-17.5); Lymphocytes Absolute Auto 1000 /uL (1100-4500); Lymphocytes Percent Auto 11.3 % (25-40); Mean Corpuscular HGB Conc 34.1 % (30-36); Mean Corpuscular Hemoglobin 29.3 PG (26-34); Mean Corpuscular Volume 85.9 fL (80-100); Monocytes Absolute Auto 800 /uL (0-900); Neutrophils Absolute Auto 6300 /uL (1500-7000); Neutrophils Percent Auto 74.4 % (50-75); Platelet Count 475 X10^3/uL (150-400); Red Blood Cell Count 3.31 X10^6/uL (4.5-5.9); White Blood Cell Count 8.4 X10^3/uL (4.5-11.0)
[2023-07-22 15:19] LABS: INR 1.2 (0.9-1.3); Prothrombin Time 13.2 SECONDS (10.1-12.7)
[2023-07-22 15:22] LABS: PTT Partial Thromboplastin Tim 23 SECONDS (26-36)
[2023-07-22 15:23] LABS: Alanine Aminotransferase 12 IU/L (<50); Albumin 3.3 g/dL (3.5-5.0); Albumin Globulin Ratio 1.1 (1.0-2.8); Alkaline Phosphatase 55 U/L (38-126); Aspartate Aminotransferase 16 IU/L (17-59); BUN Creatinine Ratio 10.3 (6-22); Bilirubin Total 0.5 mg/dL (0.2-1.3); Blood Urea Nitrogen 10 mg/dL (9-20); Calcium 8.7 mg/dL (8.4-10.2); Carbon Dioxide 25 mmol/L (22-32); Chloride 100 mmol/L (98-107); Estimated Glomerular Filt Rate > 60 mL/min (>60); Globulin 2.9 g/dL (1.7-4.1); Glucose 105 mg/dL (70-100); HEMOLYSIS < 15 (0-50); Potassium 3.8 mmol/L (3.4-5.1); Sodium 133 mmol/L (137-145); Total Protein 6.2 g/dL (6.3-8.2)
--- NOTE | 2023-07-22 16:38 | ED_ITS ---
HPI - GI Bleed General Chief complaint: GI Bleed Stated complaint: has C-diff getting worse Time Seen by Provider: 07/22/23 14:59 History of Present Illness HPI Narrative: 37-year-old male with history of C diff colitis OB presents for bloody bowel movements, fatigue, generalized weakness. Patient has had a complicated C diff course, he is completed numerous rounds of p.o. vancomycin as well as fidaxomicin and has had recurrent colitis. He is currently being evaluated by [facility] in [place] for a fecal transplant. Patient has had bloody bowel movements since his diagnosis in March. He reported feeling even more short of breath than normal and so his GI doctors told him to come to the emergency department for evaluation. Related Data Previous Rx's Medication Instructions Recorded triamcinolone acetonide 0.1 % 1 applic topical QID PRN rash #80 06/20/23 topical cream grams vancomycin 125 mg capsule 125 mg PO QID #56 caps 07/01/23 Allergies Allergy/AdvReac Type Severity Reaction Status Date / Time vancomycin Allergy Verified 06/20/23 16:27 Review of Systems Review of Systems Narrative: Negative except as marked Patient History Medical History ADHD Anxiety Clostridium difficile diarrhea Depression Opioid abuse, in remission PTSD (post-traumatic stress disorder) Shoulder pain Syncopal episodes Surgical History Anesthesia History of cosmetic surgery (~1994) History of hand surgery (~2003) History of hand surgery (~2008) History of right knee surgery (~2008) Social History household members: spouse Smoking Status: Former smoker alcohol intake: current Smoking Status: Former smoker tobacco type: vaping alcohol intake frequency: holidays/special occasions only Substance Use Type: former substance user Exam Initial Vital Signs Initial Vital Signs: Vital Signs Temperature 99.3 F 07/22/23 14:35 Pulse Rate 107 H 07/22/23 14:35 Respiratory Rate 18 07/22/23 14:35 Blood Pressure 146/70 H 07/22/23 14:35 Pulse Oximetry 98 07/22/23 14:35 Oxygen Delivery Method Room Air 07/22/23 14:35 Const: Awake, alert, fatigued, nontoxic appearing Eyes: PERRL, EOMI, conjunctiva normal ENT: Atraumatic, dentition normal, mucous membranes moist Cardiac: regular rate, regular rhythm RESP: unlabored, clear bilaterally, no wheezing GI: Atraumatic, soft, nontender, nondistended, no rebound, no guarding MSK: Atraumatic, full range of motion, pulses equal Skin: Warm, Dry, intact, no rashes Neuro: AO x3, CN II-XII grossly intact, moves all extremities Psych: affect normal, mood normal, not suicidal, not homicidal Course Course Course Narrative: Fatigued but nontoxic patient with recurrent bloody bowel movements, known history of C diff colitis, being treated by advanced specialists at [facility] in [place]. Abdomen is soft, vital signs stable. We will obtain labs and CT imaging. Orders Ordered: Discontinued Medications Sodium Chloride (Normal Saline 0.9%) 1,000 mls @ 1,000 mls/hr IV BOLUS ONE Stop: 07/22/23 19:07 Last Infusion: 07/22/23 19:09 Dose: Infused Documented By: Admin: 07/22/23 18:12 Dose: 1,000 mls/hr Documented By: HARDIK Ondansetron HCl (Ondansetron 4 Mg Odt) 4 mg SL NOW PRN PRN Reason: Nausea And Vomiting Ondansetron HCl (Ondansetron 4 Mg/2 Ml Inj) 4 mg IV NOW PRN PRN Reason: Nausea And Vomiting Reevaluation(s) Reevaluation #1: Laboratory work shows drop in hemoglobin from 11.2-9.7. CT of the abdomen and pelvis shows diffuse wall thickening consistent with C diff colitis. Patient completed course of Dificid less than 1 week ago. Discussed patient's case with the on-call GI doctor at [facility]. They stated that patient has definitive treatment would be fecal transplant, and if patient received any benefit from his Dificid then he could take a 10 day course of b.i.d. deficit until his follow up appointment. Patient stated that he did not feel any better with the deficit and since it is so expensive he does not want to take this medication again. The GI doctor stated that he would send a personal message to the patient's GI physician to see if they could expedite the fecal transplant procedure, however they did not currently have the appropriate specimen in the hospital and there is no ability to perform this procedure this week. All labs and imaging discussed with patient and at bedside as well as GI recommendations. At this time patient is hemodynamically stable, he has had a drop in hemoglobin but is not at transfusion level. There is currently no fecal transplant material available at [facility] and there is no utility in transferring patient to [facility]. Patient was counseled that if he has worsening symptoms he should return for hemoglobin check. He was advised to touch base with his GI clinic 1st thing tomorrow morning. ED return precautions discussed at bedside. Patient and expressed understanding of the plan and are in agreement at this time. All questions answered at the time of discharge. Vital Signs Vital signs: Vital Signs - 8 hr 07/22/23 14:35 07/22/23 15:49 Temperature 99.3 F 98.5 F Pulse Rate 107 H Respiratory Rate 18 Blood Pressure 146/70 H Pulse Oximetry 98 Oxygen Delivery Method Room Air MDM - GI Bleed Lab Data 07/22/23 15:00 07/22/23 15:00 Labs: Lab Results 07/22/23 07/22/23 07/22/23 Range/Units 15:00 18:03 18:03 WBC 8.4 (4.5-11.0) X10^3/uL RBC 3.31 L (4.5-5.9) X10^6/uL Hgb 9.7 L (13.5-17.5) g/dL Hct 28.4 L (41-53) % MCV 85.9 (80-100) fL MCH 29.3 (26-34) PG MCHC 34.1 (30-36) % RDW 14.0 (11.6-14.8) % Plt Count 475 H (150-400) X10^3/uL Neut % (Auto) 74.4 (50-75) % Lymph % (Auto) 11.3 L (25-40) % Villalba % (Auto) 9.0 (3-14) % Eos % (Auto) 4.8 H (2-4) % Baso % (Auto) 0.5 (0-2) % Neut # (Auto) 6300 (9117-2172) /uL Lymph # (Auto) 1000 L (2321-3486) /uL Villalba # (Auto) 800 (0-900) /uL Eos # (Auto) 400 (0-450) /uL Baso # (Auto) 0 (0-100) /uL PT 13.2 H (10.1-12.7) SECONDS INR 1.2 (0.9-1.3) APTT 23 L (26-36) SECONDS Sodium 133 L (137-145) mmol/L Potassium 3.8 (3.4-5.1) mmol/L Chloride 100 (98-107) mmol/L Carbon Dioxide 25 (22-32) mmol/L BUN 10 (9-20) mg/dL Creatinine 0.97 (0.66-1.25) mg/dL Estimated GFR > 60 (>60) mL/min BUN/Creatinine Ratio 10.3 (6-22) Glucose 105 H (70-100) mg/dL Calcium 8.7 (8.4-10.2) mg/dL Total Bilirubin 0.5 (0.2-1.3) mg/dL AST 16 L (17-59) IU/L ALT 12 (<50) IU/L Alkaline Phosphatase 55 (38-126) U/L Total Protein 6.2 L (6.3-8.2) g/dL Albumin 3.3 L (3.5-5.0) g/dL Globulin 2.9 (1.7-4.1) g/dL Albumin/Globulin Ratio 1.1 (1.0-2.8) Stl C. cayetanensis PCR Not detected (Not Detect) Stool Rotavirus (PCR) Not detected (Not Detect) Stool Adenovirus (PCR) Not detected (Not Detect) Stool Astrovirus (PCR) Not detected (Not Detect) Stool Cryptosporidium PCR Not detected (Not Detect) Stl E.coli Shiga Tox PCR Not detected (Not Detect) St Sh/Enteroin Ecoli PCR Not detected (Not Detect) Stl Enterotoxigenic E PCR Not detected (Not Detect) Stool EPEC (PCR) Not detected (Not Detect) Stl E. histolytica PCR Not detected (Not Detect) Stool Giardia Lamblia PCR Not detected (Not Detect) Stool Sapovirus (PCR) Not detected (Not Detect) Stl P. shigelloides PCR Not detected (Not Detect) St Y.enterocolitica PCR Not detected (Not Detect) Stool Vibrio (PCR) Not detected (Not Detect) Stl Vibrio cholerae PCR Not detected (Not Detect) Stl Enteroaggr Ecoli PCR Not detected (Not Detect) Stl Norovirus GI/GII PCR Not detected (Not Detect) Campylobacter (PCR) Not detected (Not Detect) C. difficile Tox (PCR) Negative for c. diff Not detected (Negative) Salmonella (PCR) Not detected (Not Detect) Blood Type A Positive Antibody Screen Negative Urine Dip Bedside Urine Glucose Negative Bedside Urine Bilirubin - Negative Bedside Urine Ketone - Negative Urine Specific [place] 1.010 Bedside Urine Occult Blood - Negative Bedside Urine pH 6.0 Bedside Urine Protein - Negative Bedside Urine Urobilinogen - Negative Bedside Urine Nitrite - Negative Bedside Urine Leukocytes - Negative Esterase Discharge Plan Departure Patient Disposition: Home Clinical Impression: C. difficile colitis, Fatigue, Anemia Instructions: DI for Colitis Prescriptions: No Action triamcinolone acetonide 0.1 % cream 1 applic topical QID MDD 5 gm PRN (Reason: rash) Qty: 80 0RF Rx Instructions: Apply to affected area (trunk) up to 4x per day vancomycin 125 mg capsule 125 mg PO QID Qty: 56 0RF Referrals: Diallo Barrow MD [Primary Care Provider] - Stand Alone Forms: Patient Portal/API
[2023-07-22] MEDS: SODIUM CHLORIDE 0.9% 1,000 ML 1000 ML IV (18:12)
[2023-07-22 19:31] LABS: Clostridium Difficile Tox PCR Negative for C. diff (Negative)
[2023-07-22 20:30] LABS: Adenovirus F 40/41 Not Detected (Not Detect); Astrovirus Not Detected (Not Detect); Campylobacter Not Detected (Not Detect); Clostridium difficile toxin AB Not Detected (Not Detect); Cryptosporidium Not Detected (Not Detect); Cyclospora cayetanensis Not Detected (Not Detect); Entamoeba histolytica Not Detected (Not Detect); Enteroaggregative E.coli Not Detected (Not Detect); Enteropathogenic E.coli Not Detected (Not Detect); Enterotoxigenic E.coli It/st Not Detected (Not Detect); Giardia lamblia Not Detected (Not Detect); Norovirus GI/GII Not Detected (Not Detect); Plesiomonsa shigelloides Not Detected (Not Detect); Rotavirus A Not Detected (Not Detect); Salmonella Not Detected (Not Detect); Sapovirus Not Detected (Not Detect); Shiga-like toxin-prod E.coli Not Detected (Not Detect); Shigella/Enteroinvasive E.coli Not Detected (Not Detect); Vibrio Not Detected (Not Detect); Vibrio cholerae Not Detected (Not Detect); Yersinia enterocolitica Not Detected (Not Detect)
== END 2023-07-22 19:10 | disposition home or self-care (01) ==
PROVIDERS: Emergency Provider Emergency Medicine; PCP Internal Medicine
DX: A04.72 Enterocolitis due to Clostridium difficile, not specified as recurrent (principal); R53.83 Other fatigue; D64.9 Anemia, unspecified
CPT/HCPCS: 36415; 74177; 80053; 81003; 85025; 85610; 85730; 86850; 86900; 86901; 87493; 87507; 93005; 93010; 96360; 99283; 99284; Q9967

== ENCOUNTER 2024-04-01 16:51 | Emergency (ER) | payer BC, SELFPAY ==
--- NOTE | 2024-04-01 17:14 | PC.NURSE ---
called for triage, no answer. Another person in lobby stated they saw patient leaving ER about 10 minutes ago. Registration asked to call composing room supervisor again if patient re-enters ER [facility].
== END 2024-04-01 17:14 | disposition left against medical advice (07) ==
PROVIDERS: Emergency Provider Emergency Medicine; PCP Internal Medicine
DX: Z53.21 Procedure and treatment not carried out due to patient leaving prior to being seen by health care provider (principal)

== ENCOUNTER → 2024-10-05 11:48 | Outpatient (CLI) | payer BC, SELFPAY ==
--- NOTE | 2024-10-05 11:49 | DI.RAD.S_ITS ---
PROCEDURE: XR FOOT RT MIN 3V INDICATIONS: injury of toe on right foot TECHNIQUE: 3 views of the foot were acquired. COMPARISON: None. FINDINGS: Bones: Fracture of the 2nd digit proximal phalangeal shaft. There is mild displacement seen on the lateral projection. No dislocations. No suspicious bony lesions. Soft tissues: No tibiotalar joint effusion. Achilles tendon appears normal. Curvilinear metallic foreign body at the distal 1st digit measuring 0.4 cm. IMPRESSION: 2nd digit proximal phalanx fracture with displacement. Curvilinear metallic body at the distal 1st digit measuring 0.4 cm. Dictated by: Kareem Figueroa M.D. on 10/05/2024 at 13:40 Approved by: Kareem Figueroa M.D. on 10/05/2024 at 13:43
== END ==
PROVIDERS: PCP Internal Medicine; Referring Provider Internal Medicine; Visit Provider Internal Medicine
DX: S92.511A Displaced fracture of proximal phalanx of right lesser toe(s), initial encounter for closed fracture (principal); X58.XXXA Exposure to other specified factors, initial encounter; Z18.10 Retained metal fragments, unspecified
CPT/HCPCS: 73630

== ENCOUNTER → 2024-10-17 08:05 | Outpatient (CLI) | payer BC, SELFPAY ==
[2024-10-17 09:22] LABS: Add Manual Diff / Slide Review NO; Basophils Absolute Auto 0 /uL (0-100); Basophils Percent Auto 0.5 % (0-2); Eosinophils Absolute Auto 900 /uL (0-450); Eosinophils Percent Auto 11.5 % (2-4); Hematocrit 43.1 % (41-53); Hemoglobin 14.8 g/dL (13.5-17.5); Lymphocytes Absolute Auto 1100 /uL (1100-4500); Lymphocytes Percent Auto 13.7 % (25-40); Mean Corpuscular HGB Conc 34.2 % (30-36); Mean Corpuscular Volume 90.4 fL (80-100); Monocytes Absolute Auto 500 /uL (0-900); Monocytes Percent Auto 6.1 % (3-14); Neutrophils Absolute Auto 5400 /uL (1500-7000); Neutrophils Percent Auto 68.2 % (50-75); Platelet Count 236 X10^3/uL (150-400); Red Blood Cell Count 4.77 X10^6/uL (4.5-5.9); Red Cell Distribution Width 13.7 % (11.6-14.8); White Blood Cell Count 7.9 X10^3/uL (4.5-11.0)
[2024-10-17 09:35] LABS: Appearance Urine UA CLEAR; Bilirubin Urine UA NEGATIVE (NEGATIVE); Color Urine UA YELLOW; Glucose Urine UA NEGATIVE (Negative); Ketones Urine UA NEGATIVE (NEGATIVE); Leukocyte Esterase Urine UA NEGATIVE (NEGATIVE); Nitrite Urine UA NEGATIVE (Negative); Occult Blood Urine UA TRACE-INTACT (Negative); Protein Urine UA NEGATIVE (Negative); Specific Gravity Urine UA <=1.005 (1.000-1.035); Urobilinogen Urine UA 0.2 E.U./dL (0.2); pH Urine UA 5.5 (4.5-8.0)
[2024-10-17 09:51] LABS: HEMOLYSIS < 15 (0-50); Iron 115 ug/dL (49-181)
[2024-10-17 09:55] LABS: Alanine Aminotransferase 24 IU/L (<50); Albumin 4.6 g/dL (3.5-5.0); Albumin Globulin Ratio 1.7 (1.0-2.8); Alkaline Phosphatase 54 U/L (38-126); Aspartate Aminotransferase 34 IU/L (17-59); Bilirubin Total 1.5 mg/dL (0.2-1.3); Blood Urea Nitrogen 16 mg/dL (9-20); Calcium 9.7 mg/dL (8.4-10.2); Carbon Dioxide 29 mmol/L (22-32); Chloride 103 mmol/L (98-107); Cholesterol 169 mg/dL (140-199); Estimated Glomerular Filt Rate > 60 mL/min (>60); Globulin 2.7 g/dL (1.7-4.1); Glucose 89 mg/dL (70-100); HDL Cholesterol 40 mg/dL (40-60); HEMOLYSIS < 15 (0-50); LDL Cholesterol Calculated 112 mg/dL (<100); Potassium 4.6 mmol/L (3.4-5.1); Sodium 137 mmol/L (137-145); Total Protein 7.3 g/dL (6.3-8.2); Triglycerides 87 mg/dL (35-150)
[2024-10-17 10:03] LABS: Percent Iron Saturation 45 % (20-50); Total Iron Binding Capacity 258 ug/dL (261-462); Transferrin 223 mg/dL (206-381)
[2024-10-17 10:22] LABS: Prostate Specific Antigen 0.705 ng/mL (0.10-4.00)
[2024-10-17 10:24] LABS: TSH w/ Reflex to FT4 1.31 uIU/mL (0.47-4.68)
== END ==
PROVIDERS: PCP Internal Medicine; Referring Provider Internal Medicine; Visit Provider Internal Medicine
DX: D50.9 Iron deficiency anemia, unspecified (principal); R35.89 Other polyuria; E29.1 Testicular hypofunction; E78.2 Mixed hyperlipidemia; N41.9 Inflammatory disease of prostate, unspecified
CPT/HCPCS: 36415; 80053; 80061; 81003; 83540; 83550; 84153; 84402; 84403; 84443; 85025

== ENCOUNTER → 2024-11-18 09:00 | Outpatient (CLI) | payer BC, SELFPAY ==
[2024-11-18 10:14] LABS: Add Manual Diff / Slide Review NO; Basophils Absolute Auto 100 /uL (0-100); Basophils Percent Auto 1.3 % (0-2); Eosinophils Absolute Auto 900 /uL (0-450); Eosinophils Percent Auto 15.7 % (2-4); Hematocrit 43.7 % (41-53); Lymphocytes Absolute Auto 900 /uL (1100-4500); Lymphocytes Percent Auto 15.7 % (25-40); Mean Corpuscular HGB Conc 34.3 % (30-36); Mean Corpuscular Hemoglobin 31.1 PG (26-34); Mean Corpuscular Volume 90.5 fL (80-100); Monocytes Absolute Auto 600 /uL (0-900); Monocytes Percent Auto 10.2 % (3-14); Neutrophils Absolute Auto 3300 /uL (1500-7000); Neutrophils Percent Auto 57.1 % (50-75); Platelet Count 213 X10^3/uL (150-400); Red Blood Cell Count 4.83 X10^6/uL (4.5-5.9); Red Cell Distribution Width 13.5 % (11.6-14.8); White Blood Cell Count 5.8 X10^3/uL (4.5-11.0)
[2024-11-18 10:32] LABS: Alanine Aminotransferase 22 IU/L (<50); Albumin 4.5 g/dL (3.5-5.0); Albumin Globulin Ratio 1.8 (1.0-2.8); Alkaline Phosphatase 65 U/L (38-126); Aspartate Aminotransferase 29 IU/L (17-59); Bilirubin Total 1.1 mg/dL (0.2-1.3); Blood Urea Nitrogen 12 mg/dL (9-20); Calcium 9.3 mg/dL (8.4-10.2); Carbon Dioxide 27 mmol/L (22-32); Chloride 102 mmol/L (98-107); Estimated Glomerular Filt Rate > 60 mL/min (>60); Globulin 2.5 g/dL (1.7-4.1); Glucose 101 mg/dL (70-100); HEMOLYSIS < 15 (0-50); Sodium 138 mmol/L (137-145)
== END ==
PROVIDERS: PCP Internal Medicine; Referring Provider Nurse Practitioner Family; Visit Provider Nurse Practitioner Family
DX: R19.7 Diarrhea, unspecified (principal)
CPT/HCPCS: 36415; 80053; 85025

== ENCOUNTER → 2024-11-19 07:46 | Outpatient (CLI) | payer BC, SELFPAY ==
[2024-11-20 11:14] LABS: Fecal Immunochemical Test Positive (Negative)
== END ==
PROVIDERS: PCP Internal Medicine; Referring Provider Nurse Practitioner Family; Visit Provider Nurse Practitioner Family
DX: R19.7 Diarrhea, unspecified (principal)
CPT/HCPCS: 82274

== ENCOUNTER → 2024-11-27 07:18 | Outpatient (CLI) | payer BC, SELFPAY ==
--- NOTE | 2024-11-27 07:19 | DI.US.S_ITS ---
PROCEDURE: US ABDOMEN LIMITED INDICATIONS: diarrhea, abd pain TECHNIQUE: Real-time scanning was performed of the abdominal and retroperitoneal organs, with image documentation. COMPARISON: None. FINDINGS: Liver: Liver is normal in size and homogeneous in echotexture. Gallbladder: No gallstones. biliary sludge without inflammatory changes Biliary ducts: Intrahepatic bile ducts are non-dilated. Extrahepatic bile duct caliber measures 6.3 mm. Normal is 6-7 mm or less in diameter, or 10 mm or less post-cholecystectomy. Pancreas: Visualized portions of the pancreas are sonographically normal. Miscellaneous: No free abdominal fluid. IMPRESSION: Biliary sludge. No evidence of pericholecystic inflammatory changes Approved by: Mina Zimmerman M.D. on 11/27/2024 at 18:47
== END ==
PROVIDERS: PCP Internal Medicine; Referring Provider Nurse Practitioner Family; Visit Provider Nurse Practitioner Family
DX: R10.9 Unspecified abdominal pain (principal); R19.7 Diarrhea, unspecified; K83.8 Other specified diseases of biliary tract
CPT/HCPCS: 76705

== ENCOUNTER → 2025-06-01 14:11 | Outpatient (CLI) | payer OTHER, SELFPAY ==
--- NOTE | 2025-06-01 14:14 | DI.RAD.S_ITS ---
PROCEDURE: XR FOOT LT MIN 3V INDICATIONS: big toe pain TECHNIQUE: 3 views of the foot were acquired. COMPARISON: [facility], CR, XR FOOT RT MIN 3V, 10/05/2024, 11:59. FINDINGS: Bones: Intra-articular fracture involving the lateral 1st proximal phalangeal head with adjacent soft tissue swelling. No suspicious bony lesions. Mild 1st MTP joint space narrowing. Soft tissues: No tibiotalar joint effusion. Achilles tendon appears normal. IMPRESSION: Fracture of the medial 1st proximal phalangeal head. Dictated by: Nguyễn EVANS Interpreted: Manny Garrido MD on 06/01/2025 at 15:26 Transcribed by: EMILY on 06/09/2025 at 13:37 Approved by: Noe Werner M.D. on 06/09/2025 at 16:39
== END ==
PROVIDERS: PCP Internal Medicine; Referring Provider Internal Medicine; Visit Provider Internal Medicine
DX: S92.412A Displaced fracture of proximal phalanx of left great toe, initial encounter for closed fracture (principal); M79.675 Pain in left toe(s); X58.XXXA Exposure to other specified factors, initial encounter
CPT/HCPCS: 73630